=== PATIENT | female | born 1975 | race African-American/Black ===

== ENCOUNTER 2024-04-06 18:22 | Emergency (ER) | payer OTHER, BC, SELFPAY ==
[2024-04-06 18:34] VITALS: BP 114/62; PULSE 78; RESP 20; TEMP 36.6; O2SAT 100
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
[2024-04-06 19:00] VITALS: BP 114/62; PULSE 78; RESP 20; TEMP 36.6; O2SAT 100
== END 2024-04-06 19:05 | disposition short-term general hospital (02) ==
PROVIDERS: Emergency Provider Registered Nurse; PCP Family Medicine
DX: S09.90XA Unspecified injury of head, initial encounter (principal); V47.5XXA Car driver injured in collision with fixed or stationary object in traffic accident, initial encounter; Z79.01 Long term (current) use of anticoagulants; M25.562 Pain in left knee; M54.6 Pain in thoracic spine; I11.0 Hypertensive heart disease with heart failure; I50.9 Heart failure, unspecified; E11.9 Type 2 diabetes mellitus without complications; E78.5 Hyperlipidemia, unspecified; F41.9 Anxiety disorder, unspecified; F32.A Depression, unspecified; Z95.5 Presence of coronary angioplasty implant and graft
CPT/HCPCS: 99202; G0463

== ENCOUNTER 2025-02-18 09:26 | Emergency (ER) | payer BC, SELFPAY ==
--- NOTE | ~2025-02-18 | XR_ITS ---
EXAMINATION: XR finger 1st LT min 2V, 02/18/2025 10:36 CDT HISTORY: crush injury last night COMPARISON: No comparisons available. Findings: There is a nondisplaced fracture distal aspect distal phalanx. No significant degenerative changes. Soft tissues unremarkable. Impression: Fracture detailed above Reviewed, dictated and finalized at location P. Impression: Fracture detailed above
[2025-02-18 09:58] VITALS: BP 116/69; PULSE 77; RESP 20; TEMP 36.5; O2SAT 100
--- OUTSIDE RECORDS SUMMARY | 2025-02-18 10:34 | XMS_ITS | Encounter Summary ---
Author Organization [facility] Address [address] [place] [address] Phone Care Team Providers Care Home Health Care Physician Name Role Phone Ashleigh Rodrigues MD Primary Care Provide r Gilles BUSTAMANTE MD, [facility] [phone] Reason for Referral * Radiology Services (Routine) - Closed Specialty Diagnoses / Procedures Referred By Contac t Referred To Contact Radiology Diagnoses Pre-op testing Urge urinary incontinence Procedures EKG 12 LEAD Randee Campoverde III, MD [address] [place] [address] Phone: tel: fax: Referral ID Status Reason Start Date Expiration Date Visits Re quested Visits Authorized [id number] Closed 11/17/2022 1 1 Encounter Details Date Type Department Care Team (Late st Contact Info) Description 11/17/2022 Transcribe Orders [facility] Preop/Pacu II [address] [place] [id number] Randee Campoverde III, MD [address] [place] [address] Pre-op testing (Primary Dx); Urge urinary incontinence Social History Tobacco Use Types Packs/Day Years Used Date Smoking Tobacco: Former Cigarettes Smokeless Tobacco: Never Alcohol Use Standard Drinks/Week Comments Yes 0 (1 standard drink = 0.6 oz pur e alcohol) Sexually Active Control Partners Comments Not Currently Comments No Sex and Gender Information Value Date Recorded Sex Assigned at Female 05/16/2024 1:11 PM [employer] Legal Sex Female 11:00 AM CDT Gender Identity Female 05/16/2024 1:11 PM [employer] Sexual Orientation Lesbian or [place] 05/16/2024 1: 11 PM [employer] COVID-19 Exposure Response Date Recorded In the last 10 days, have yo u been in contact with someone who was confirmed or suspected to have Coronavirus/COVID-19? No / Unsure 11/14/2022 9:28 AM CDT documented as of this encounter Plan of Treatment Not on file documented as of this encounter Results * (ABNORMAL) BASIC METABOLIC PANEL W/ CALCIUM TOTAL (11/25/2022 9:52 AM CDT) SODIUM 137 136 - 144 mmol/L 11/25/2022 11:31 AM CDT [facility] POTASSIUM 4.1 3.5 - 5.1 mmol/L 11/25/2022 11:31 AM CDT [facility] CHLORIDE 101 100 - 110 mmol/L 11/25/2022 11:31 AM CDT [facility] CO2, VENOUS 23 22 - 32 mmol/L 11/25/2022 11:31 AM CDT [facility] ANION GAP 17.1 8.0 - 20.0 mmol/L 11/25/2022 11:31 AM CDT [facility] GLUCOSE 179(H) 70 - 99 mg/dL 11/25/2022 11:31 AM CDT [facility] BUN 13 6 - 20 mg/dL 11/25/2022 11:31 AM CDT [facility] CREATININE, BLOOD 0.76 0.60 - 1.10 mg/dL 11/25/2022 11:31 AM CDT [facility] BUN/CREATININE RATIO 17 12 - 20 ratio 11/25/2022 11:31 AM CDT [facility] CALCIUM 9.0 8.7 - 10.5 mg/dL 11/25/2022 11:31 AM CDT [facility] IS THE PATIENT REQUIRED TO BE FASTING? No 11/25/2022 11:31 AM CDT [facility] GFR, ESTIMATED >60 >=60 11/25/2022 11:31 AM CDT [facility] Comment: Creatinine Clearance is the preferred criteria for selecting drug dose adjustments in renally impaired patients. The GFR is provided as additional pertinent clinical information. GFR is reported in mL/min/1.73 sq m. Calculation based on the Chronic Kidney Disease Epidemiology Collaboration (CKD- EPI) equation refit without adjustment for race. GFR, EST. >60 >=60 023 11:31 AM CDT [facility] GFR, EST. NONAFRICAN >60 >=60 11/25/2022 11:31 AM CDT [facility] Blood Venipuncture / Unknown 11/25/2022 9:52 AM CDT 11/25/2022 10:52 AM CDT us Randee Campoverde III, MD CHEMISTRY ORDERABLES Fin al Result [facility] [address] [place] [address] * EKG 12 LEAD (11/25/2022 9:42 AM CDT) Ventricular Rate 74 BPM EXTERNAL EKG Atrial Rate 74 BPM EXTERNAL EKG P-R Interval 160 ms EXTERNAL EKG QRS Duration 78 ms EXTERNAL EKG Q-T Duration 396 ms EXTERNAL EKG QTC CALCULATION 439 ms EXTERNAL EKG P [place] 60 degrees EXTERNAL EKG R [place] 40 degrees EXTERNAL EKG T [place] 41 degrees EXTERNAL EKG 11/25/2022 9:42 AM CDT Impressions EXTERNAL EKG - 11/29/2022 12:47 PM CDT Normal sinus rhythm with sinus arrhythmia Normal ECG No previous ECGs available Confirmed by Jeremy Kim ([id number]) on 11/29/2022 12:47:16 PM Narrative Procedure Note Jeremy Barraza MD - 11/29/2022 IMPRESSION: Normal sinus rhythm with sinus arrhythmia Normal ECG No previous ECGs available Confirmed by Jeremy Kim ([id number]) on 11/29/2022 12:47:16 PM Randee Campoverde III, MD IMG ECG ORDERABLES Final Result EXTERNAL EKG documented in this encounter Visit Diagnoses Diagnosis Pre-op testing- Primary Preoperative examination, unspecified Urge urinary incontinence Urge incontinence Pre-op testing Preoperative examination, unspecified Urge urinary incontinence Urge incontinence documented in this encounter Care Teams Home Health Care Physician Relationship Specialty Start Date End Date Ashleigh Rodrigues MD 2 [facility] [address] [address] PCP - General Family Medicine 11/14/22 Randee Campoverde III, MD [address] [place] [address] Consulting Physician Urology 11/14/22 documented as of this encounter
--- OUTSIDE RECORDS SUMMARY | 2025-02-18 10:34 | XMS_ITS | Clinical Summary ---
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 E11.65 300 each 3 02/15/20 23 Active blood-glucose meter kit Use daily as directed for monitoring of blood sugar for diabetes. E11.65 1 kit 1 02/15/20 23 Active lancets 32 gauge misc Use to check blood sugar 3x day. May use another gauge as available. e11.65 300 each 3 02/15/20 23 Active alcohol swabs pads, medicated Apply 1 each topically 3 (three) times a day before meals Prior to checking blood sugar. E11.65 400 each 3 02/15/20 23 Active naloxone (NARCAN) 4 mg/actuation spray,non-aerosol Administer 1 spray into affected nostril(s) as needed for opioid reversal or respiratory depression 12/23/19 23 Active famotidine (PEPCID) 20 mg tablet Take 1 tablet (20 mg total) by mouth 2 (two) times a day 200 tablet 1 05/10/19 24 Active Dexcom G7 Sensor device 1 Device continuously Change every 10 days. E11.65 10 each 3 09/14/19 24 Active Stimulant Laxative Plus 8.6-50 mg Take 1 tablet by mouth 2 (two) times a day as needed 12/12/19 24 Active baclofen (LIORESAL) 20 mg tablet Take 1 tablet (20 mg total) by mouth 3 (three) times a day as needed for muscle spasms 12/12/19 24 Active ergocalciferol (VITAMIN D) 50,000 unit capsule Take 1 capsule (50,000 Units total) by mouth once a week Fridays01/09/20 24 Active calcium carbonate (TUMS) 500 mg (200 mg elemental calcium) chewable tablet Take 3 tablet/chew tab (1,500 mg total) by mouth 3 (three) times a day as needed for indigestion or heartburn Active traMADoL (ULTRAM) 50 mg tablet Take 1 tablet (50 mg total) by mouth every 8 (eight) hours as needed for pain Active TURMERIC ORAL Take 3 capsules by mouth daily Active multivitamin with folic acid 400 mcg tablet Take 1 tablet by mouth nightly Active UNABLE TO FIND Take 2 each by mouth nightly Med Name: multi-mineral tablet. Active omega 7-aqm-kau-fish oil 1,000 (120-180) mg capsule Take 1 capsule (1,000 mg total) by mouth daily Active empagliflozin (JARDIANCE) 25 mg tabletIndications: type 2 diabetes mellitus Take 1 tablet (25 mg total) by mouth daily e11.65 90 tablet 4 02/12/20 24 Active triamcinolone (KENALOG) 0.5 % cream APPLY TO THE AFFECTED AREA THREE TIMES DAILY FOR 7 DAYS 03/01/20 24 Active ondansetron ODT (ZOFRAN-ODT) 4 mg disintegrating tabletIndications: Chronic nausea Take 1 tablet (4 mg total) by mouth every 12 (twelve) hours as needed for nausea or vomiting 30 tablet 03/18/20 24 Active clobetasoL (TEMOVATE) 0.05 % cream 04/17/20 24 Active cyclobenzaprine (FLEXERIL) 10 mg tablet TAKE 1 TABLET BY MOUTH THREE TIMES DAILY FOR UP TO 14 DAYS NEEDED FOR MUSCLE SPASMS 04/06/20 24 Active tacrolimus (PROTOPIC) 0.1 % ointment 04/21/20 24 Active docosahexaenoic acid/epa (FISH OIL ORAL) Take 1,000 mg by mouth Active hydrOXYzine (ATARAX) 25 mg tablet Take by mouth 2 (two) times a day as needed 05/14/[address] (PROTONIX) 40 mg EC tablet Take 1 tablet (40 mg total) by mouth daily 90 tablet 1 05/23/19 25 Active clopidogreL (PLAVIX) 75 mg tablet Take 1 tablet (75 mg total) by mouth daily 90 tablet 3 05/23/19 25 026 Active metoprolol XL (TOPROL-XL) 50 mg extended release tablet Take 1 tablet (50 mg total) by mouth daily 90 tablet 3 05/23/19 25 Active furosemide (LASIX) 20 mg tablet TAKE 1 TABLET(20 MG) BY MOUTH DAILY 100 tablet 1 06/08/19 25 Active sertraline (ZOLOFT) 100 mg tablet TAKE 1 AND 1/2 TABLETS(150 MG) BY MOUTH DAILY 150 tablet 1 06/08/19 25 Active isosorbide mononitrate ER (IMDUR) 30 mg 24 hr tablet TAKE 1 TABLET BY MOUTH EVERY DAY 90 tablet 3 06/12/19 25 Active pen needle, diabetic (BD Yaquelin 2nd Gen Pen Needle) 32 gauge x 5/32 needle Use to inject U500 insulin 2 daily e11.65 200 each 07/03/19 25 Active busPIRone (BUSPAR) 5 mg tabletIndications: Generalized Anxiety Disorder Take 1 tablet (5 mg total) by mouth 3 (three) times a day 90 tablet 2 07/30/19 25 026 Active tirzepatide (MOUNJARO) 10 mg/0.5 mL pen injector injection Inject 0.5 mL (10 mg total) under the skin once a week 2 mL 08/03/19 25 Active armodafiniL (NUVIGIL) 150 mg tablet TAKE 1 TABLET(150 MG) BY MOUTH DAILY 30 tablet 5 09/05/19 25 Active spironolactone (ALDACTONE) 25 mg tablet TAKE 2 TABLETS(50 MG) BY MOUTH DAILY 180 tablet 3 10/02/19 25 Active benzonatate (TESSALON) 100 mg capsuleIndications :Cough Take 1 capsule (100 mg total) by mouth 3 (three) times a day as needed for cough 42 capsule 10/02/19 25 Active nystatin cream APPLY TOPICALLY TO FEET TWICE DAILY 10/08/19 25 Active aspirin 81 mg enteric coated tablet TAKE 1 TABLET BY MOUTH EVERY DAY 100 tablet 11/02/19 25 Active gabapentin (NEURONTIN) 800 mg tabletIndications: Malignant neoplasm of right ovary Take 1 tablet (800 mg total) by mouth 3 (three) times a day 90 tablet 1 12/21/19 25 Active tiZANidine (ZANAFLEX) 2 mg tablet Take 1 tablet (2 mg total) by mouth 3 (three) times a day 12/21/19 25 Active atorvastatin (LIPITOR) 80 mg tablet Take 1 tablet (80 mg total) by mouth daily 90 tablet 4 01/02/20 25 Active ezetimibe (ZETIA) 10 mg tablet Take 1 tablet (10 mg total) by mouth daily 90 tablet 3 01/04/20 25 026 Active Active Problems Patient Care Coordination No te Formatting of this note is d ifferent from the original. 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 - 08/07/2023: CA125 13, CT 08/08/23: OLU Plan 8.6.25: -q3 month surveillance -CA125 Problem Noted Date Diagnosed Date COVID-19 10/01/2024 Assessment & Plan (10/01/2024 11:52 AM CDT): Nasal congestion 10/01/2024 Assessment & Plan (10/01/2024 11:52 AM CDT): Orders: POC Influenza A/B, COVID-19 antigen POCT respiratory syncytial virus Dizziness 06/18/2024 Assessment & Plan (08/22/2024 9:44 AM CDT): chronic Recent echo in jan was unremarkable EKG was unchanged in b Declines meclizine Most likely orthostatics given her bp in office today is borderline although orthostatics at previous office visits were negative Recommend reaching out to her financial accountant to lower one of her bp medications Get up slow, stay hydrated Will also refer to neurology just to be sure nothing neurological is occurring but ct scan in jun was reassuring Assessment & Plan (06/18/2024 12:50 PM GEOTECHNICAL LABORATORY TECHNICIAN): New concern Not at goal Orthostatics in office negative, see above Cmp already pending, will add tsh and cbc Recent echo in jan was unremarkable Will get EKG and ct of the head stat and hold Declines meclizine She has an appt with neuro on 07/01 which I recommended she also discuss with them F/u in 2 months Fatigue 06/18/2024 Assessment & Plan (06/18/2024 12:49 PM GEOTECHNICAL LABORATORY TECHNICIAN): Chronic Initially improved and now symptoms are back We will order CBC B12 TSH iron panel Follow-up pending above results Pain of finger of left hand 06/18/2024 Assessment & Plan (06/18/2024 12:51 PM GEOTECHNICAL LABORATORY TECHNICIAN): New concern 2/2 fracture Continue splint and tylenol for pain Referral to ortho for further evaluation and recommendation Rash 05/23/2024 Assessment & Plan (05/23/2024 11:15 AM GEOTECHNICAL LABORATORY TECHNICIAN): New concern Derm saw granuloma but they also mentioned concern for sarcoidosis Will refer to rheumatology for further evaluation History of vitamin D deficiency 05/23/2024 Assessment & Plan (05/23/2024 11:16 AM GEOTECHNICAL LABORATORY TECHNICIAN): Vit d levels ordered Pending results will determine dose of vit d supplements Family history of colon cancer 05/23/2024 Encounter for screening colonoscopy 05/23/2024 Chest pain, unspecified type 01/25/2024 Assessment & Plan (02/08/2024 8:46 AM CDT): Stable Cardiac etiology ruled out during hospitalization Will do a trial of ppi for 90 days to see if there is any improvement Will also refer to psychiatry upon request of patient for anxiety F/u in 3 months at annual Zyncdcom continuous glucose monitoring device 12/07 Assessment & Plan (10/28/2024 8:52 AM CDT): Continuous glucose monitor (cgm) applied from 10/15/2024 to 10/28/2024 This device was placed for monitor and treatment of blood sugar. Interpretation of data- 98% time in range. Average blood sugar- 118, 2% hyperglycemia. 0% hyperglycemia. Assessment & Plan (06/28/2024 8:44 AM GEOTECHNICAL LABORATORY TECHNICIAN): Continuous glucose monitor (cgm) applied from 06/15/2024 to 06/28/2024 This device was placed for monitor and treatment of blood sugar. Interpretation of data- 75% time in range. Average blood sugar- 143, 2% % hypoglycemia. 23% hyperglycemia. Assessment & Plan (12/26/2023 8:30 AM CDT): Continuous glucose monitor (cgm) applied from 12/13/2023 to 12/26/2023 This device was placed for monitor and treatment of blood sugar. Interpretation of data- 66% time in range. Average blood sugar- 167, 3 % hypoglycemia. 31 % hyperglycemia. Impacted cerumen of left ear 10/25/2023 Assessment & Plan (10/25/2023 11:08 AM CDT): New concern Cerumen removed with lighted curette of the left ear Avoid q tips F/u prn Neuropathy due to drug 10/25/2023 Syncope, tussive 10/25/2023 Assessment & Plan (10/25/2023 11:05 AM CDT): 2/2 coughing Resolved Unlikely cardiac related given hx F/u prn Stool fat increased 10/25/2023 Assessment & Plan (10/25/2023 11:07 AM CDT): New concern Not at goal Will get stool cx but low suspicion of infection Likely gallbladder related Will refer to GI for further evaluation and recommendation Chemotherapy-induced neuropathy 08/09/2023 Overview (11/08/2023): Pt reporting persistent bilateral upper and lower extremity neuropathy with associated painful tingling on max dose gabapentin 800mg TID. Plan: - Transition from gabapentin to Lyrica (when starting Lyrica decrease gabapentin to 400mg TID, Lyrica induction with 75mg daily x7 days then 75mg BID) - medications resent to patient's pharmacy Assessment & Plan (05/22/2024 12:32 PM GEOTECHNICAL LABORATORY TECHNICIAN): Chronic stable Cont gabapentin as per Oncology Assessment & Plan (10/25/2023 11:06 AM CDT): Chronic stable Will do a one time 30 day refill of the gabapentin but she will need to follow back up with the oncologist in November for future refills BRIP1 gene mutation positive 08/09/2023 Overview (11/08/2023): S/p counseling. Recommended for referral to genetic counselor, pt declines. 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 Discussed risk of breast/ovary/colon cancer due to autosomal dominant mutation. Patient referred to genetic counselor 07/19/23: has not yet seen genetic counselor. Discussed again, patient declines. Discussed compliance with cancer screenings, including next mammogram due 09/2023. Cancer of fallopian tube 03/16/2023 Chest pain 02/06/2023 Hypertension associated with diabetes 01/31/2023 Assessment & Plan (05/22/2024 12:28 PM GEOTECHNICAL LABORATORY TECHNICIAN): Bp in the office today BP Readings from Last 1 Encounters: 05/17/24 126/63 Continue current regimen of amlodipine 5mg daily metoprolol 50 mg daily spironolactone 25 mg daily Recommend DASH diet, heart-healthy lifestyle, exercise. Discussed the risks of hypertension. F/u in 6 months Assessment & Plan (12/26/2023 9:17 AM CDT): This is a chronic condition which is at goal. Goal is less than 140/90. Blood pressure 90s over 40s, 90s over 50s. Reports at home blood pressures are running 120s over 80. Messaged Dr. Antonio Alvarez regarding blood pressure. She agreed to test at home and let us know how her blood pressure is looking. She has upcoming appointments both with cardiology and Dr. Butts Continue amlodipine, Lasix, metoprolol, spironolactone Encouraged to monitor weight and B/P at home. Explained correct way to take blood pressure. - After 5 minutes of sitting calmly with arm supported. Encouraged to void caffeine and excessive alcohol consumption as this will elevate B/P Assessment & Plan (10/25/2023 11:07 AM CDT): Bp in the office today BP Readings from Last 1 Encounters: 10/25/23 132/70 Continue current regimen of amlodipine 5mg daily Recommend DASH diet, heart-healthy lifestyle, exercise. Discussed the risks of hypertension. F/u in 6 months Assessment & Plan (09/08/2023 9:15 AM CDT): This is a chronic condition which is at goal. Goal is less than 140/90 Personally reviewed labs. Continue spironolactone, sacubitril/valsartan, amlodipine Encouraged to monitor weight and B/P at home Encouraged to take medications as prescribed. Assessment & Plan (06/07/2023 8:36 AM GEOTECHNICAL LABORATORY TECHNICIAN): This is a chronic condition which is at goal of less than 140/90 Personally reviewed labs. Continue spironolactone, amlodipine, Lasix, metoprolol Encouraged to monitor weight and B/P at home Encouraged to take medications as prescribed. Assessment & Plan (05/10/2023 3:04 PM GEOTECHNICAL LABORATORY TECHNICIAN): Bp in the office today BP Readings from Last 1 Encounters: 05/10/23 122/80 Continue current regimen of amlodipine 5mg daily Recommend DASH diet, heart-healthy lifestyle, exercise. Discussed the risks of hypertension. F/u in 6 months Assessment & Plan (03/06/2023 12:43 PM CDT): This is a chronic condition which is at goal of less than 140/90 Personally reviewed labs. Continue amlodipine, furosemide, spironolactone Encouraged to monitor weight and B/P at home Encouraged to take medications as prescribed. Assessment & Plan (01/31/2023 10:52 AM CDT): Bp in the office today BP Readings from Last 1 Encounters: 01/31/23 114/80 Continue current regimen of amlodipine 5mg daily Recommend DASH diet, heart-healthy lifestyle, exercise. Discussed the risks of hypertension. F/u in 6 months Malignant neoplasm of fallopian tube 01/31/2023 Overview (12/11/2024): - TLH/BSO on 12/21/22 for heavy menstrual bleeding. Pathology notable for at least Stage IIA, grade 3 serous fallopian tube cancer, p53 mut. - 02/22/23: Initial visit, exam wnl. - 03/15/23: CT A/P w/ no evidence of metastatic disease. Discussed limitations with not having full staging; will plan to discuss case at tumor board to discuss whether to pursue full staging or not (if higher stage, may be candidate for parp inhibitor). Discussed in meantime, will arrange for port and pre-auth for carboplatin/docetaxol. Will undergo chemo teaching today. -04/19/23: Presents for pre-chemo visit prior to Cycle 2 of Carbo/Taxotere -05/10/23: Presents for pre-chemo visit prior to Cycle 3 of Carbo/Taxotere -06/07/23: Presents for pre-chemo visit prior to Cycle 4 of Carbo/Taxotere. Encouraged scheduled antiemetics and fiber for stool bulking. - 07/19/23: C6 prechemo visit. Neuropathy worsening but otherwise feeling at baseline. Taking 600 mg TID gabapentin. - 08/09/23: s/p C6 carbo/taxotere. CT no e/o metastatic disease. Neuropathy stable but bothersome, frequent tripping, otherwise symptomatically improved. Taking wendi 800mg TID, unsure if helpful. Declines genetic counselor s/p counseling. Due for mammogram, ordered. - 11/08/23: OLU on exam. CA-125 9. - 03/06/24: OLU. CA-125 9.9. - 06/05/24: OLU. CA125 7.0 - 09/11/24: OLU. CA125 6.0. - 12/11/24: OLU. CA 125 7.0. 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 Continue following with specialist Severe episode of recurrent major depressive disorder, without psychotic features 09/21/2022 Assessment & Plan (05/22/2024 12:31 PM GEOTECHNICAL LABORATORY TECHNICIAN): Continue sertraline 150mg daily -SI/-HI Reminded her to report to the ED or call EMS should SI/HI develop Continue with therapy F/u in 6 months Assessment & Plan (05/09/2023 11:02 PM GEOTECHNICAL LABORATORY TECHNICIAN): Continue sertraline 100mg daily -SI/-HI Reminded her to report to the ED or call EMS should SI/HI develop Continue with therapy F/u in 3 months Assessment & Plan (01/31/2023 11:51 AM CDT): Continue sertraline 100mg daily -SI/-HI Reminded her to report to the ED or call EMS should SI/HI develop Does not want to increase the dose at this time but will do a closer follow up given everything that is going (mother passing, recent ovarian cancer, father with liver cancer) Continue with therapy F/u in 3 months Assessment & Plan (10/05/2022 10:05 AM CDT): improved Continue sertraline 100mg daily Referral to therapy given -SI/-HI Reminded her to report to the ED or call EMS should SI/HI develop F/u in 3 months MAGDIEL (obstructive sleep apnea) 06/23/2022 Assessment & Plan (05/22/2024 12:32 PM GEOTECHNICAL LABORATORY TECHNICIAN): Stable / clinically quiescent. Will continue to monitor. Assessment & Plan (01/30/2023 6:58 AM CDT): Stable / clinically quiescent. Will continue to monitor. Hyperlipidemia associated with type 2 diabetes tricia alicea 06/23/2022 Assessment & Plan (05/22/2024 12:27 PM GEOTECHNICAL LABORATORY TECHNICIAN): Stable Continue atorvastatin 80mg daily Assessment & Plan (12/26/2023 9:17 AM CDT): This is a chronic condition which is not at goal . Goal is LDL less than 70 Continue atorvastatin Encouraged to eat healthy, include fresh fruits and vegetables daily and avoid eating fried foods more than once per week. Assessment & Plan (09/08/2023 9:16 AM CDT): This is a chronic condition which is not at goal . Goal is LDL less than 70 Continue atorvastatin Encouraged to eat healthy, include fresh fruits and vegetables daily and avoid eating fried foods more than once per week. Encouraged to take medications as prescribed. Assessment & Plan (06/07/2023 8:35 AM GEOTECHNICAL LABORATORY TECHNICIAN): This is a chronic condition which is at goal of LDL less than 70 Continue atorvastatin Encouraged to eat healthy, include fresh fruits and vegetables daily and avoid eating fried foods more than once per week. Encouraged to take medications as prescribed. Assessment & Plan (03/06/2023 12:44 PM CDT): This is a chronic condition which is at goal of LDL less than 70 Continue atorvastatin Encouraged to eat healthy, include fresh fruits and vegetables daily and avoid eating fried foods more than once per week. Encouraged to take medications as prescribed. Assessment & Plan (01/30/2023 6:56 AM CDT): Stable Continue atorvastatin 80mg daily Menometrorrhagia 01/05/2022 Overview (01/05/2022): Added automatically from request for surgery [id number] Chronic nausea 12/10/2021 Assessment & Plan (03/18/2024 1:05 PM GEOTECHNICAL LABORATORY TECHNICIAN): Refilled Zofran as courtesy for patient today Assessment & Plan (12/10/2021 10:39 AM CDT): Unknown etiology Will continue with compazine for now Will eventually send to GI for further evaluation History of uterine fibroid 11/16/2021 History of abnormal cervical Pap smear Assessment & Plan (11/16/2021 6:54 PM CDT): Obtain pap/glue jointer operator history from [facility]. STEVEN signed. Class 2 severe obesity due t o excess calories with serious comorbidity and body mass index (BMI) of 37.0 to 37.9 in adult 11/16/2021 Assessment & Plan (05/23/2024 11:17 AM GEOTECHNICAL LABORATORY TECHNICIAN): She was counseled on the importance of maintaining a healthy weight and the risks of obesity. Weight loss recommended. Encourage 150min/ week of exercise Encourage 1500 calories in a day for weight loss On ozempic to help with weight loss She is down 20lbs since oct Assessment & Plan (03/18/2024 1:05 PM GEOTECHNICAL LABORATORY TECHNICIAN): Chronic, improving but not at goal BMI less than 30 Continue nutrition and exercise changes Assessment & Plan (12/26/2023 9:18 AM CDT): This is a chronic condition which continues Sixteen lbs. Weight loss since last office visit Continue Ozempic 1 mg weekly Encouraged healthy eating which includes a low carb diet. Avoiding processed foods, sweets and fried foods. Encouraged 30 minutes of walking at least 5 days per week Discussed that exercise can be broken down into small sessions- for example 2- 15 minutes sessions or 3- 10 minutes sessions. Assessment & Plan (12/11/2023 12:51 PM CDT): She has been trying to exercise more Assessment & Plan (09/08/2023 9:17 AM CDT): This is a chronic condition which continues 11 lbs. Weight gain since last office visit Encouraged healthy eating which includes a low carb diet. Avoiding processed foods, sweets and fried foods. Encouraged 30 minutes of walking at least 5 days per week Discussed that exercise can be broken down into small sessions- for example 2- 15 minutes sessions or 3- 10 minutes sessions. She has lower leg edema from a side effect related to her radiation. This may be part of the reason she has an increase in weight. She is being treated with diuretics for this condition Assessment & Plan (06/07/2023 8:34 AM GEOTECHNICAL LABORATORY TECHNICIAN): This is a chronic condition which is improving 17 lb weight loss since last office visit She has been sick, and is on chemo Encouraged healthy eating and minimal exercise as she can tolerate Assessment & Plan (03/06/2023 12:44 PM CDT): This is a chronic condition which continues. Weight is stable, will be undergoing chemotherapy Tolerating Trulicity 4.5 mg weekly Encouraged healthy eating and weight loss Assessment & Plan (11/16/2021 6:49 PM CDT): Encourage a weight loss program such as Weight Watchers incorporating dietary changes and aerobic / weight-bearing exercise at least 4-5 times per week, for at least 30-45 minute sessions. Abnormal uterine bleeding 11/09/2021 Assessment & Plan (12/07/2022 8:46 AM CDT): Going for laparoscopic hysterectomy Assessment & Plan (11/16/2021 7:17 PM CDT): Will continue norethindrone 5 mg daily for now. Await pelvic sono results - will schedule to be done here in office next week. May need to consider EMB. Plan to schedule consult with Dr. Martinez to discuss surgical intervention. Patient no longer desires fertility and the bleeding is affecting her daily activities and quality of life. Assessment & Plan (11/09/2021 10:30 AM CDT): worsening Continue norethindrone TVUS and pelvic US to evaluate for mass and endometrial lining TSH, PRL, LH FSH E2 (evaluate for perimenopause) CBC to evaluate anemia Referral to ob for further recommendation Coronary artery disease 09/28/2021 Assessment & Plan (05/22/2024 12:26 PM GEOTECHNICAL LABORATORY TECHNICIAN): stable Continue following with cardiology Continue with aspirin and statin and blood pressure control Assessment & Plan (01/30/2023 6:56 AM CDT): Found on cardiac cath One stent placed Continue following with cardiology Continue with aspirin and statin and blood pressure control Assessment & Plan (05/31/2022 1:50 PM GEOTECHNICAL LABORATORY TECHNICIAN): Found on cardiac cath One stent placed Recent financial accountant left the practice and in need of a new financial accountant Referral placed Continue with aspirin and statin and blood pressure control Assessment & Plan (12/10/2021 10:37 AM CDT): S/p pci with 1 stent placed Continue with aspirin and plavix and statin Instructed not to take NSAIDS given the gi toxicity Recommend continue following with cardiology F/u in 3 months Assessment & Plan (09/28/2021 1:24 PM CDT): Found on cardiac cath No stents were placed Has follow up with cardiology on 10/05 who will start her on medical management Continue with aspirin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 [place] [address] Ashleigh Tidwell MD Medical Question/Miscellan eous 01/14/2025 Telephone [facility] [address] [place] [address] [address] [place] [address] Rai Reid NP 01/09/2025 Telephone [facility] Gastroenterology at [address] [place] [address] Yu Verdugo Colonoscopy Reschedule 01/03/2025 Orders Only [employer] at [address] [place] [address] Baljeet Acuña NP 01/02/2025 Telephone [employer] [facility] at [address] [place] [address] Baljeet Acuña NP 01/01/[address] [address] Anastasiya Carey 12/27/2024 Telephone [facility] Primary Care at [address] [place] [address] Ashleigh Tidwell MD Medical Question/Miscellan eous 12/25/2024 Telephone [facility] - [facility] [address] [place] [phone] Astrid Beck Au.D. 12/20/2024 Telephone [facility] [address] [facility] 13th [place] [address] Luiza Comer, RN 12/20/2024 Orders Only [facility] [address] [facility] 13th [place] [address] [place] [address] Luiza Comer, RN Malignant neoplasm of right ovary 12/13/2024 Telephone [facility] Gynecology Clinic [address] [facility] 3rd [address] [place] [address] Naila Cornejo RN 12/11/2024 3:15 PM CDT Office Visit [facility] [address] [place] [address] Malignant neoplasm of right ovary (Primary Dx) 12/10/2024 Orders Only [facility] [address] [facility] 13th [place] [address] Luiza Comer, RN 12/10/2024 Orders Only [facility] [address] [facility] 13th [place] [address] Luiza Comer RN 12/10/2024 Orders Only [facility] [address] [facility] 13th [place] [address] [place] [address] Luiza Comer, RN Malignant neoplasm of right ovary (HCC) (Primary Dx) 12/09/2024 Orders Only [facility] Primary Care at [address] [place] [address] Ashleigh Tidwell MD Screening mammogram for breast cancer (Primary Dx) 12/09/2024 Telephone [facility] [address] [facility] [address] [place] [address] Jil Jimenez MA 12/09/2024 Results Follow-Up [facility] Primary Care at [place] [address] [facility] [address] [place] [phone] Ashleigh Tidwell MD Screening Mammogram Bilateral W Jaquan 12/07/2024 9:00 AM CDT Lab [facility] [address] [place] [address] Malignant neoplasm of right ovary (HCC) 12/07/2024 8:30 AM CDT - 12/07/2024 11:59 PM CDT Hospital Encounter [facility] [address] [place] [address] Screening mammogram, encounter for Discharge Disposition: Discharge to home or self care from Last 3 Months Immunizations Immunization Administration Dates Next Due Influenza, Quadrivalent, Spl it, Preservative Free, Intramuscular 04/19/2022 Influenza, Unspecified 01/05/2024,2022,04/07/2022,09/28(Deferred: Patient Refused),08/27/2021(Deferred: Patient Refused),05/08/2021(Deferred: Patient Refused),02/05/2021(Deferred: Patient Refused),12/06/2020(Deferred: Patient Refused),12/06/2020(Deferred: Patient Refused),12/06/2020(Deferred: Patient Refused),12/06/2020(Deferred: Patient Refused) Pneumococcal Conjugate Pcv20 12/11/2023 Tdap 10/10/2020 Surgical History Surgery Date Site/Laterality Comments REDUCTION MAMMAPLASTY 05/08/2008 - 05/07/2009 Bilateral CARPAL TUNNEL RELEASE Right DILATION AND CURETTAGE OF UTERUS CARDIAC STENT PLACEMENT 1 stent FOOT SURGERY Left mass removed from left foot HYSTERECTOMY PORT PLACEMENT CHEST >5 YEARS 03/23/2023 N/A PORT REMOVAL 12/21/2023 N/A COLONOSCOPY 01/22/2025 first Medical History Medical History Date Comments Motion sickness Asthma GERD (gastroesophageal reflux disease) Cancer (HCC) Kidney stone CAD (coronary artery disease) St ent TIANA (generalized anxiety disorder) DJD (degenerative joint disease) (HFpEF) heart failure with preserved ejection fr action MDD (major depressive disorder) DM2 (diabetes mellitus, type 2) HTN (hypertension) MAGDIEL (obstructive sleep apnea) HLD (hyperlipidemia) Vitamin D deficiency Diabetic retinopathy (HCC) ETOH abuse COPD (chronic obstructive pulmonary disease) Obesity Covid-19 Fallopian tube cancer, carcinoma Neuropathy HPV (human papilloma virus) infection Cervix Family History Medical History Relation Name Comments Liver cancer Father Breast cancer Maternal cousin COPD Mother Lilia Damon Cancer Mother Lilia Damon lung Drug abuse Mother Lilia Damon Hypertension Mother Lilia Damon Multiple sclerosis Mother Lilia Damon Ovarian cancer Mother's Sister 1 great aunt Colon cancer Mother's Sister 2 Thyroid cancer Neg Hx Relation Name Status Comments Father Alive Maternal cousin Mother Lilia Damon Mother's Sister 1 great aunt Mother's Sister 2 Social History Tobacco Use Types Packs/Day Years Used Date Smoking Tobacco: Former Cigarettes 2 16 Q uit: 06/2022 Smokeless Tobacco: Former Tobacco Cessation:Counseling Given: Not Answered Alcohol Use Standard Drinks/Week Comments Yes 0 (1 standard drink = 0.6 oz pur e alcohol) [facility] Utilities Answer Date Recorded In the past 12 months has Rewardable, gas, oil, or water [employer] threatened to shut off services in your home? No 05/30/2023 Social Connection and Isolation Panel Answer Date Recorded In a typical week, how many times do you talk on the phone with family, friends, or neighbors? More than three times a week 05/30/2023 How often do you get togethe r with friends or relatives? Twice a week 05/30/2023 How often do you attend chur ch or jewish services? Never 05/30/2023 Do you belong to any clubs o r organizations such as sikh groups, unions, fraternal or athletic groups, or school groups? No 05/30/2023 How often do you attend meet ings of the clubs or organizations you belong to? Never 05/30/2023 Marital Status Not on file 05/30/2023 Overall Financial Resource Strain (CARDIA) Answe r Date Recorded How hard is it for you to pa y for the very basics like food, housing, medical care, and heating? Not very hard 05/30/2023 PHQ-2 Answer Date Recorded PHQ-2 Total Score (If total score is 3 or more points, staff should administer the PHQ-9) 0 10/01/2024 Hunger Vital Sign Answer Date Recorded Within the past 12 months, y ou worried that your food would run out before you got the money to buy more. Patient declined Within the past 12 months, t he food you bought just didn't last and you didn't have money to get more. Patient declined PRAPARE - Transportation Answer Date Re corded In the past 12 months, has l ack of transportation kept you from medical appointments or from getting medications? No 05/09 In the past 12 months, has l ack of transportation kept you from meetings, work, or from getting things needed for daily living? No 05/30/2023 Housing Stability Vital Sign Answer Jimmy e Recorded In the last 12 months, was t here a time when you were not able to pay the mortgage or rent on time? No 05/30/2023 In the last 12 months, how many places have you lived? 1 05/30/2023 In the last 12 months, was t here a time when you did not have a steady place to sleep or slept in a long-term (including now)? No 05/30/2023 AUDIT-C Answer Date Recorded Q1: How often do you have a drink containing alc ohol? Monthly or less 01/21/2025 Q2: How many drinks containi ng alcohol do you have on a typical day when you are drinking? 1 or 2 01/21/2025 Q3: How often do you have si x or more drinks on one occasion? Never 01/21/2025 Personal Safety Answer Date Recorded Have you ever been in or are you currently in a harmful physical or emotional relationship or is someone making you feel afraid or unsafe? Denies 01/22/2025 Comments No Sex and Gender Information Value Date Recorded Sex Assigned at Not on file Legal Sex Female 11:22 PM CDT Gender Identity Not on file Sexual Orientation Not on file Obstetrics History Para Term AB IAB SAB Ectopic Multiple Livin g Live Births 0 0 0 0 0 0 0 0 0 0 0 Last Filed Vital Signs Vital Sign Reading Time Taken Comments Blood Pressure 106/72 02/12/2025 3:19 PM CDT Pulse 87 02/12/2025 3:19 PM CDT Temperature 36.6 C (97.9 F) 01/22/2025 1:08 PM CDT Respiratory Rate 18 01/22/2025 1:08 PM CDT Oxygen Saturation 97% 02/12/2025 3:19 PM CDT Inhaled Oxygen Concentration - - Weight 87.7 kg (193 lb 6.4 oz) 02/12/2025 3:19 P M CDT Height 162.6 cm (5' 4.02) 02/12/2025 3:19 PM CD T Body Mass Index 33.18 02/12/2025 3:19 PM CDT Plan of Treatment Health Maintenance Due Date Last Done Comments Influenza Vaccine (#1) 2025 , 03/21/2023, 04/19/2022, Additional history exists Regular Well Visit/Exam 18-64 05/23/2025 05/23/2024, 01/31/2023, 08/27/2021 Covid-19 Vaccine (3 - Pfizer risk series) 06/18/2025 09/06/2020, 08/18/2020 Postponed from 10/04/2020 (Patient declined, but will receive in the future) Hemoglobin A1C 06/25/2025 12/23/2024, 09/05, 06/28/2024, Additional history exists Albumin Creatinine Ratio, Urine 07/05/2025 07/05/2024, 09/08/2023, 08/31/2022, Additional history exists Dilated Eye Exam 09/27/2025 09/27/2024, , 07/05/2024, Additional history exists Depression Screening 10/01/2025 10/01/2024, 08/21/2024, 06/18/2024, Additional history exists Foot Exam 10/28/2025 10/28/2024, 05/08, 03/06/2023, Additional history exists Breast Cancer Screening-Mammogram 12/07/2025 12/07/2024, 09/29/2023, 09/20/2022 Lipid Panel 12/23/2025 12/23/2024, 06/08, 05/23/2024, Additional history exists eGFR 12/23/2025 12/23/2024, 12/06, 11/04/2024, Additional history exists DTaP/Tdap/Td Vaccine (2 - Td or Tdap) 10/10/2030 10/10/2020 Colon Cancer Screening-Colonoscopy 01/22/2035 01/22/2025 Cervical Cancer Screening Discontinued 11/23/2020 Pneumococcal vaccine <65 Completed 12/11/2023 Hepatitis B Screening Completed 07/11/2024 Hepatitis C Screening Completed 07/11/2024 , 10/25/2023, 08/28/2021 Medical Devices Implanted Type Area Health Education Aide Device Identifier Shelf Expiration Date Model / Serial / Lot [employer] Xcela Power Port 8fr [id number] - [id number] Implanted:Qty: 1 on 03/23/2023 by rGegg Lutz MD at [facility] [employer] 07/11/2027 [id number] / / [id number] Procedures Procedure Name Priority Date/Time Associated Diagnosis Comments HEARING AID FIT Routine 01/30/2025 8:00 AM CDT Sensorineural hearing loss (SNHL) of right ear with unrestricted hearing of left ear COLON BIOPSY 01/22/2025 12:15 PM CDT Family history of colon cancer Encounter for screening colonoscopy POCT GLUCOSE DEVICE Routine 01/22/2025 11:25 AM CDT SURGICAL PATHOLOGY STAT 01/22/2025 10:27 AM CDT Family history of colon cancer Encounter for screening colonoscopy COLONOSCOPY 01/22/2025 10:03 AM CDT EGFR Routine 12/23/2024 LIPID PANEL Routine 12/23/2024 COMPREHENSIVE METABOLIC PANEL Routine 12/23/2024 TSH Routine 12/23/2024 HEMOGLOBIN A1C Routine 12/23/2024 CA 125 Routine 12/07/2024 9:02 AM CDT Malignant neoplasm of right ovary (HCC) SCREENING MAMMOGRAM BILATERAL W JAQUAN Schedule Routine, Read Routine (OP Routine) 12/07/2024 8:55 AM CDT Screening mammogram, encounter for DIABETIC EYE EXAM Routine 09/27/2024 HEPATITIS PANEL, ACUTE Routine 07/11/2024 11:56 AM GEOTECHNICAL LABORATORY TECHNICIAN ALBUMIN CREATININE RATIO, URINE Routine 07/05/2024 9:07 AM GEOTECHNICAL LABORATORY TECHNICIAN 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 - 01/30/2025 8:00 AM CDT Astrid Beck Au.D. 01/30/2025 9:14 AM Hearing Aid Fit Performed by: Astrid Beck Au.D. Authorized by: Astrid Beck Au.D. us Astrid Land [employer] O RDERABLES Final Result * POCT glucose (01/22/2025 11:25 AM CDT) Glucose, POC 89 70 - 199 mg/dL Blood 01/22/2025 11:2 5 AM CDT 01/22/2025 11:25 AM CDT us Fly Cast DO LAB POCT ORDERABLES - DEVICE F inal Result [facility] [address] [facility] Department of Laboratories [place], [place] [id number] * Surgical pathology (01/22/2025 10:27 AM CDT) Tissue (Polyp(s), colon/colorectal, esophageal, gastric) 01/22/2025 12:39 PM CDT Narrative PATHOLOGY [facility] ([facility] - 01/24/2025 3:40 PM CDT EPIC results best viewed via link to PDF [facility] Department of Pathology [address] [place] [address] Note to Patients: This report may contain a detailed description of human tissue sent by a health care provider to the laboratory for pathologic evaluation. The content of this report is essential for diagnosis and may provide important critical findings. This information may be unfamiliar to patients to review without a medical professional present. It is advised that the patient review this report in the presence of a health care provider who can answer questions and explain the details. Final Report Patient Name: HEIDY HESTER Address: [address] [place], [place] [address] Gender: F : 1975 (Age: 49) Service: Gastro Location: [facility] Hospital #: [id number] Patient Type: [facility] Taken: 01/22/2025 Received: 01/23/2025 Accessioned: 01/23/2025 Reported: 01/24/2025 Physician(s):Dr. Fly Cast D.O. Diagnosis: Colon, splenic flexure, biopsy: - Early/evolving hyperplastic polyp. - No evidence of dysplasia or malignancy. Sean Bay MD Report Electronically Reviewed and Signed Out By Sean Bay MD 01/24/2025 15:40:11 Specimen(s) Received: A: Splenic flexure polyp x 1 Microscopic Description: Microscopic examination of routine and numerous deeper levels shows two polypoid fragments of colonic mucosa with subtle hyperplastic glandular changes without evidence of marked crypt dilation, lateral branching, or flattening of the crypt bases. The aforementioned findings are quite subtle, and, alone, are not entirely specific. However, in concert with the endoscopic impression of a polyp, they are compatible with an early/evolving hyperplastic polyp. There is no evidence of dysplasia or malignancy. Clinical History: Family history of colon cancer. Screening colonoscopy. Gross Description: The specimen is submitted in a single formalin filled container labeled HEIDY HESTER and splenic flexure polyp x1. It is 2 fragments of solorio mucosa, 1 and 2 mm. All in one cassette. Vivien Cortes/Smita Rudolph M.D. REPORT IMAGES AND SCANNED DOCUMENTS, IF INCLUDED, ONLY VIEWABLE IN PDF VERSION OF REPORT The performance characteristics of some immunohistochemical stains, fluorescence in-situ hybridization tests and immunophenotyping by flow cytometry cited in this report (if any) were determined by the Surgical Pathology Department at [facility] as part of an ongoing quality director program and in compliance with federally mandated regulations drawn from the Clinical Laboratory Improvement Act of 1988 (CLIA '88). Some of these tests rely on the use of analyte specific reagents and are subject to specific labeling requirements by the US Food and Drug Administration. Such diagnostic tests may only be performed in a facility that is certified by the Department of Health and Human Services as a high complexity laboratory under CLIA '88. The FDA has determined that such clearance or approval is not necessary. This test is used for clinical purposes. It should not be regarded as investigational or for research. Nevertheless, federal rules concerning the medical use of analyte specific reagents require that the following disclaimer be attached to the report: This test was developed and its performance characteristics determined by the Surgical Pathology Department [facility]. It has not been cleared or approved by the U. S. Food and Drug Administration. Note for decalcified specimens: This assay has not been validated on decalcified tissues. Results should be interpreted with caution given the possibility of false negativity on decalcified specimens Fly Cast DO LAB PATHOLOGY ORDERABLES Final Result PATHOLOGY [facility] ([facility] [place] [address] * Colonoscopy (01/22/2025 10:03 AM CDT) Anatomical Region Laterality Modality Other Narrative Procedure Note Fly Cast DO - 01/22/2025 10:03 AM CDT [facility] Patient Name: Heidy Hester Procedure Date: 01/22/2025 10:03 AM Date of : 1975 Admit Type: Outpatient Age: 49 Gender: Female Attending MD: Fly Cast D.O., Room: [facility] ENDOSCOPY ROOM 3 Note Status: Finalized Patient Profile: Refer to note in patient chart for documentation of history and physical. Procedure: Colonoscopy Indications: Screening for colorectal malignant neoplasm, Thisis the patient's first colonoscopy Referring MD: Ashleigh Tidwell M.D. Providers: Fly Cast D.O. Impression: - One 3 mm polyp at the splenic flexure, removedwith a jumbo cold forceps. Resected and retrieved. Recommendation: - Discharge patient to home. - Resume previous diet. - Continue present medications. - Await pathology results. - Repeat colonoscopy (date not yet determined) for surveillance based on pathology results. - Return to primary care physician PRN. Medicines: Monitored Anesthesia Care Complications: No immediate complications. Estimated Blood Loss: Estimated blood loss was minimal. Procedure: Pre-Anesthesia Assessment: - As per anesthesia. The benefits, risks and alternatives of theprocedure and sedation were discussed and informed consentwas obtained. All questions were answered. Please referto the signed informed consent document in the medical record. The bowel preparation used was Miralax via split dose instruction. The bowel preparation usedwas bisacodyl tablets via split dose instruction. The scope was passed under direct vision. TheColonoscope [id number] was introduced through the anus and advanced to the the cecum, identified by appendiceal orifice and ileocecal valve. The colonoscopy was performed without difficulty. The patient tolerated the procedure well. The qualityof the bowel preparation was adequate. Anatomical landmarks were photographed. Findings: The perianal and digital rectal examinations were normal. A 3 mm polyp was found in the splenic flexure. The polyp was removed with a jumbo cold forceps. Resection and retrieval were complete. No additional abnormalities were found on retroflexion. Electronically signed by Fly Cast M.D. Fly Cast D.O. 01/22/2025 12:43:06 PM Number of Addenda: 0 Note Initiated On: 01/22/2025 10:03 AM Procedure Code(s): --- Professional --- 13866, Colonoscopy, flexible; with biopsy, single or multiple --- Technical --- 64034, Colonoscopy, flexible; with biopsy, single or multiple Diagnosis Code(s): --- Professional --- Z12.11, Encounter for screening for malignant neoplasm of colon D12.3, Benign neoplasm of transverse colon (hepatic flexure orsplenic flexure) --- Technical --- Z12.11, Encounter for screening for malignant neoplasm of colon D12.3, Benign neoplasm of transverse colon (hepatic flexure orsplenic flexure) CPT copyright 2022 [employer] [place] [employer]. All rights reserved. The codes documented in this report are preliminary and upon spot checker reviewmay be revised to meet current compliance requirements. Recognized by the [place] [employer] for promoting quality in endoscopy Fly Cast DO ENDOSCOPY PROCEDURES Final Res ult * EGFR (12/23/2024) SCRIBED eGFR 104 EXTERNAL LAB SCRIBED eGFR 104 EXTERNAL LAB 12/23/2024 [facility] Provider MD HEALTH MAINTENANCE Final Result Performing Organization Address City/[facility] Co de Phone Number EXTERNAL LAB * TSH (12/23/2024) Scribed TSH 1.59 0.40 - 4.50 mcU/mL EXTERNAL LAB Blood 12/23/2024 Result [facility] Provider MD LAB BLOOD ORDERABLES Pita l Result Performing Organization Address [facility] Co de Phone Number EXTERNAL LAB * (ABNORMAL) Hemoglobin A1c (12/23/2024) [facility] SCRIBED Hemoglobin A1c 6.3(A) 4.0 - 5.6 % EXTERNAL LAB Blood 12/23/2024 Result [facility] Provider MD LAB BLOOD ORDERABLES Pita l Result Performing Organization Address [facility] Co de Phone Number EXTERNAL LAB * (ABNORMAL) Lipid panel (12/23/2024) Pathologist [facility] SCRIBED Cholesterol, Total 203(A) 30 - 199 mg/dL EXTERNAL LAB SCRIBED Triglycerides 91 <=149 mg/dL EXTERNAL LAB SCRIBED HDL 52 >=40 mg/dL EXTERNAL LAB SCRIBED LDL 132(A) <=129 mg/dL EXTERNAL LAB Scribed Non-HDL Cholesterol 151 NONE mg/dL EXTERNAL LAB SCRIBED Total Cholesterol/HDL Ratio 4 NONE EXTERNAL LAB Blood 12/23/2024 Result [facility] Provider MD LAB BLOOD ORDERABLES Pita l Result Performing Organization Address City/[facility] Co de Phone Number EXTERNAL LAB * Comprehensive metabolic panel (12/23/2024) Pathologist [facility] SCRIBED Sodium 136 - - - mmol/L EXTERNAL LAB SCRIBED Potassium 3.8 - - - mmol/L EXTERNAL LAB SCRIBED Chloride 98 - - - mmol/L EXTERNAL LAB SCRIBED Carbon Dioxide 29 - - - mmol/L EXTERNAL LAB SCRIBED Anion Gap - - - - mmol/L EXTERNAL LAB SCRIBED Urea Nitrogen (BUN) 19 - - - mg/dl EXTERNAL LAB SCRIBED Creatinine 0.72 - - - mg/dl EXTERNAL LAB SCRIBED Glucose 92 - - - mg/dl EXTERNAL LAB SCRIBED Calcium 9.6 - - - mg/dl EXTERNAL LAB SCRIBED Bilirubin 0.6 - - - mg/dl EXTERNAL LAB SCRIBED Plasma Protein 7.0 - - - g/dl EXTERNAL LAB SCRIBED Albumin 4.5 - - - g/dl EXTERNAL LAB SCRIBED Alkaline Phosphatase 122 - - - Units/L EXTERNAL LAB SCRIBED Alanine Transaminase (ALT) 19 - - - Units/L EXTERNAL LAB SCRIBED Aspartate Transaminase (AST) 17 - - - Units/L EXTERNAL LAB SCRIBED eGFR 104 - - - EXTERNAL LAB SCRIBED eGFR 104 - - - EXTERNAL LAB Blood 12/23/2024 Historical Provider LAB BLOOD ORDERABLES Pita l Result EXTERNAL LAB * CA 125 (12/07/2024 9:02 AM CDT) Pathologist [facility] CA 125 ag 7.0 1.0 - 35.0 units/mL Comment: Interpretive Data The Carlos Manuel CA 125 assay procedure was used. Results from different manufacturers or methods may not be comparable. Serial testing should be performed using the same method. Testing performed by: [facility], [address] [place] [address]., [id number] Blood 12/07/2024 9:02 AM CDT 12/07/2024 1:19 PM CDT us Clarice Em MD LAB BLOOD ORDERABLES Fi nal Result [facility] [address] [facility] [place] [address] * Screening Mammogram Bilateral W Jaquan (12/07/2024 8:55 AM CDT) Anatomical Region Laterality Modality Breast Bilateral Mammography Impressions 12/09/2024 8:14 AM CDT Bilateral No evidence of malignancy in either breast. OVERALL BI-RADS FINAL ASSESSMENT: 1 - Negative RECOMMENDATION: Recommend bilateral annual screening mammography. Narrative 12/09/2024 8:14 AM CDT EXAMINATION: Screening Mammogram Bilateral W Jaquan: 12/07/2024 COMPARISON: Relevant prior studies available at the time of interpretation were reviewed, including the most recent mammogram on: 09/29/2023. TECHNIQUE: Mammography was performed with 2D and digital breast tomosynthesis (DBT) images. CAD was utilized. BREAST PARENCHYMAL COMPOSITION: There are scattered areas of fibroglandular density. FINDINGS: Bilateral There is no suspicious mass, calcification, or architectural distortion in either breast.There are benign calcifications in both breasts. us Self Screening Mammogram IMG MAMMO PROCEDURES Fi nal Result * (ABNORMAL) Diabetic Eye Exam (09/27/2024) Generic External Data Provider HEALTH MAINTENANC E Final Result * Hepatitis panel, acute Blood (07/11/2024 11:56 AM GEOTECHNICAL LABORATORY TECHNICIAN) Hep A IgM Nonreactive Nonreactive Comment: Interpretive Data: If Hep A IgM Ab is reported as Equivocal, a new sample should be drawn in two weeks for testing. Current interpretive data was last revised on 19. Testing performed by: [facility], [address] [place] [address], [place]., [id number] Hep B core IgM Nonreactive Nonreactive [facility] Comment: Interpretive Data If HepB Core IgM Ab is reported as Equivocal, a new sample should be drawn in two weeks for testing. Current interpretive data was last revised on 19. Testing performed by: [facility], [address] [place] [address], [place]., [address] Hep C Ab Nonreactive Nonreactive [facility] ([facility] Comment: Interpretive Data Nonreactive: Antibodies to HCV not detected. Does NOT exclude the possibility of recent exposure to HCV. Equivocal: Equivocal for HCV antibodies. Supplemental molecular testing will be automatically performed to determine infection status in accordance with current CDC screening recommendations. Reactive: Positive for HCV antibodies. This may represent current or past HCV infection. Supplemental molecular testing will be automatically performed to determine current infection status in accordance with current CDC screening recommendations. Interpretive data was last revised on 2019. Testing performed by: [facility], [address] [place] [address]., [id number] HepBsAg Nonreactive Nonreactive [facility] Comment:Testing performed by : [facility], [address] [place] [address]., [id number] Blood 07/11/2024 11:5 6 AM GEOTECHNICAL LABORATORY TECHNICIAN 07/11/2024 6:27 PM GEOTECHNICAL LABORATORY TECHNICIAN Bayron Zee MD LAB MICROBIOLOGY - GENERAL ORD ERABLES Final Result Performing Organization Address [facility]/ZIP Co de Phone Number [facility] [address] [facility] Department of [place], [place] [id number] * Albumin Creatinine Ratio, Urine (07/05/2024 9:07 AM GEOTECHNICAL LABORATORY TECHNICIAN) Albumin Ur <12.0 mg/L Comment: Interpretive Data No reference range established. Current interpretive data was last revised 2018. Creatinine Ur 17.8 mg/dL [facility] Comment: Interpretive Data No reference range established. Current interpretive data was last revised 2018. Albumin Creatinine Ratio, Ur See Comment 1 - 29 [facility] Comment:Unable to calculate Urine 07/05/2024 9:07 AM GEOTECHNICAL LABORATORY TECHNICIAN 07/05/2024 3:49 PM GEOTECHNICAL LABORATORY TECHNICIAN us Shameka Alberts NP LAB URINE ORDERABLES Final Resu lt Performing Organization Address City/[facility]/ZIP Co de Phone Number [facility] [address] [facility] Department of Laboratories [place], [place] [phone] from Last 3 Months or Most Recently Relevant to Health Maintenance Insurance [employer] [place] [employer] [place] Advance Directives For more information, please contact: [phone] * Full Code (Latest Code Status on File) Date Activated Date Inactivated Comments 01/22/2025 10:19 AM 01/22/2025 5:21 PM * Full Code Date Activated Date Inactivated Comments 01/22/2025 10:19 AM 01/22/2025 10:19 AM * Full Code Date Activated Date Inactivated Comments 02/01/2024 9:23 AM 02/02/2024 7:21 PM * Full Code Date Activated Date Inactivated Comments 12/21/2023 10:29 AM 12/22/2023 5:15 AM * Full Code Date Activated Date Inactivated Comments 05/29/2023 6:51 PM 05/31/2023 8:49 PM Care Teams Welding Machine Operator Resistance Relationship Specialty Start Date End Date Ashleigh Tidwell MD [address] [facility] [address] [place] [address] PCP - General Family Medicine 08/01/22 Shameka Alberts, KATELYN [address] [place] [address] Nurse Practitioner Endocrinology Diabetes & Metabolism 01/15/25
--- OUTSIDE RECORDS SUMMARY | 2025-02-18 10:34 | XMS_ITS | Encounter Summary ---
Author Organization [facility] Healthcare Address [address] [place] [address] Care Team Providers Care Home Restoration Service Supervisor Name Role Phone Ashleigh Rodrigues MD Primary Care Provide r Shameka Araujo AIR BRUSH DECORATOR Unavailable [phone] Encounter Details Date Type Department Care Team (Latest Contact Info) Description 01/25/2025 Results Follow-Up [facility] Gastroenterology at [address] [place] [id number] [employer], [address] [place] [address] Surgical pathology Social History Tobacco Use Types Packs/Day Years Used Date Smoking Tobacco: Former Cigarettes 2 16 Q uit: 06/2022 Smokeless Tobacco: Former Alcohol Use Standard Drinks/Week Comments Yes 0 (1 standard drink = 0.6 oz pur e alcohol) [facility] Utilities Answer Date Recorded In the past 12 months has Style on Screen, gas, oil, or water company threatened to shut off services in your [...] often do you attend chur ch or gnosticist services? Never 05/30/2023 Do you belong to any clubs o r organizations such as judaism groups, unions, fraternal or athletic groups, or [...] place to sleep or slept in a chcf (including now)? No 05/30/2023 AUDIT-C Answer Date [...] on file Sexual Orientation Not on file documented as of this encounter Plan of Treatment Not on file documented as of this encounter Visit Diagnoses Not on filedocumented in this encounter Care Teams Home Restoration Service Supervisor Relationship Specialty Start Date End Date Ashleigh Rodrigues MD [address] [facility] [address] [place] [id number] PCP - General Family Medicine 08/01/22 Shameka Araujo, KATELYN [address] [address] Nurse Practitioner Endocrinology Diabetes & Metabolism 01/15/25 documented as of this encounter
--- OUTSIDE RECORDS SUMMARY | 2025-02-18 10:34 | XMS_ITS ---
Author Organization [facility] Address [address] [place] [id number] Care Team Providers Care Program Manager Environmental Planning Name Role Phone Ashleigh Tidwell MD Primary Care Provide r Shameka Alberts BAR PILOT Unavailable [phone] Active Problems Patient Care Coordination No te Formatting of this note is d ifferent from the original. 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) s/p C6 of carbo/doce?07/19/23 Caris: p53 and [...] jan was unremarkable EKG was unchanged in feb Declines meclizine Most likely orthostatics given her bp in office today is borderline although orthostatics at previous office visits were negative Recommend reaching out to her internal medicine nurse practitioner to lower one of her bp medications Get up slow, stay hydrated Will also refer to neurology just to be sure nothing neurological is occurring but ct scan in feb was reassuring Assessment & Plan (06/18/2024 12:50 PM NET APPLICATION SUPPORT SPECIALIST): New concern Not at goal Orthostatics in [...] 06/18/2024 Assessment & Plan (06/18/2024 12:49 PM NET APPLICATION SUPPORT SPECIALIST): Chronic Initially improved and now symptoms are back We will order CBC B12 TSH iron panel Follow-up pending above results Pain of finger of left hand 06/18/2024 Assessment & Plan (06/18/2024 12:51 PM NET APPLICATION SUPPORT SPECIALIST): New concern 2/2 fracture Continue splint and tylenol for pain Referral to ortho for further evaluation and recommendation Rash 05/23/2024 Assessment & Plan (05/23/2024 11:15 AM NET APPLICATION SUPPORT SPECIALIST): New concern Derm saw granuloma but they also mentioned concern for sarcoidosis Will refer to rheumatology for further evaluation History of vitamin D deficiency 05/23/2024 Assessment & Plan (05/23/2024 11:16 AM NET APPLICATION SUPPORT SPECIALIST): Vit d levels ordered Pending results will [...] anxiety F/u in 3 months at annual dexcom continuous glucose monitoring device 12/07 Assessment & Plan (10/28/2024 8:52 AM CDT): Continuous glucose monitor (cgm) applied from 10/15/2024 to 10/28/2024 This device was placed for monitor and treatment of blood sugar. Interpretation of data- 98% time in range. Average blood sugar- 118, 2% hyperglycemia. 0% hyperglycemia. Assessment & Plan (06/28/2024 8:44 AM NET APPLICATION SUPPORT SPECIALIST): Continuous glucose monitor (cgm) applied from 06/15/2024 [...] pharmacy Assessment & Plan (05/22/2024 12:32 PM NET APPLICATION SUPPORT SPECIALIST): Chronic stable Cont gabapentin as per Oncology [...] 01/31/2023 Assessment & Plan (05/22/2024 12:28 PM NET APPLICATION SUPPORT SPECIALIST): Bp in the office today BP Readings [...] prescribed. Assessment & Plan (06/07/2023 8:36 AM NET APPLICATION SUPPORT SPECIALIST): This is a chronic condition which is at goal of less than 140/90 Personally reviewed labs. Continue spironolactone, amlodipine, Lasix, metoprolol Encouraged to monitor weight and B/P at home Encouraged to take medications as prescribed. Assessment & Plan (05/10/2023 3:04 PM NET APPLICATION SUPPORT SPECIALIST): Bp in the office today BP Readings [...] Found during hysterectomy Has upcoming appt with vtc technician onc on Feb 22 Continue following with specialist Severe episode of recurrent major depressive disorder, without psychotic features 09/21/2022 Assessment & Plan (05/22/2024 12:31 PM NET APPLICATION SUPPORT SPECIALIST): Continue sertraline 150mg daily -SI/-HI Reminded her to report to the ED or call EMS should SI/HI develop Continue with therapy F/u in 6 months Assessment & Plan (05/09/2023 11:02 PM NET APPLICATION SUPPORT SPECIALIST): Continue sertraline 100mg daily -SI/-HI Reminded her [...] 06/23/2022 Assessment & Plan (05/22/2024 12:32 PM NET APPLICATION SUPPORT SPECIALIST): Stable / clinically quiescent. Will continue to monitor. Assessment & Plan (01/30/2023 6:58 AM CDT): Stable / clinically quiescent. Will continue to monitor. Hyperlipidemia associated with type 2 diabetes tricia alicea 06/23/2022 Assessment & Plan (05/22/2024 12:27 PM NET APPLICATION SUPPORT SPECIALIST): Stable Continue atorvastatin 80mg daily Assessment & [...] prescribed. Assessment & Plan (06/07/2023 8:35 AM NET APPLICATION SUPPORT SPECIALIST): This is a chronic condition which is [...] (01/05/2022): Added automatically from request for surgery [id number] Chronic nausea 12/10/2021 Assessment & Plan (03/18/2024 1:05 PM NET APPLICATION SUPPORT SPECIALIST): Refilled Marcelafredy as courtesy for patient today Assessment & Plan (12/10/2021 10:39 AM CDT): Unknown etiology Will continue with compazine for now Will eventually send to GI for further evaluation History of uterine fibroid 11/16/2021 History of abnormal cervical Pap smear Assessment & Plan (11/16/2021 6:54 PM CDT): Obtain pap/vtc technician history from [facility]. STEVEN signed. Class 2 severe obesity due t o excess calories with serious comorbidity and body mass index (BMI) of 37.0 to 37.9 in adult 11/16/2021 Assessment & Plan (05/23/2024 11:17 AM NET APPLICATION SUPPORT SPECIALIST): She was counseled on the importance of maintaining a healthy weight and the risks of obesity. Weight loss recommended. Encourage 150min/ week of exercise Encourage 1500 calories in a day for weight loss On ozempic to help with weight loss She is down 20lbs since oct Assessment & Plan (03/18/2024 1:05 PM NET APPLICATION SUPPORT SPECIALIST): Chronic, improving but not at goal BMI [...] condition Assessment & Plan (06/07/2023 8:34 AM NET APPLICATION SUPPORT SPECIALIST): This is a chronic condition which is [...] 09/28/2021 Assessment & Plan (05/22/2024 12:26 PM NET APPLICATION SUPPORT SPECIALIST): stable Continue following with cardiology Continue with aspirin and statin and blood pressure control Assessment & Plan (01/30/2023 6:56 AM CDT): Found on cardiac cath One stent placed Continue following with cardiology Continue with aspirin and statin and blood pressure control Assessment & Plan (05/31/2022 1:50 PM NET APPLICATION SUPPORT SPECIALIST): Found on cardiac cath One stent placed Recent internal medicine nurse practitioner left the practice and in need of a new internal medicine nurse practitioner Referral placed Continue with aspirin and statin [...] 09/22/2021 Assessment & Plan (06/02/2022 11:27 AM NET APPLICATION SUPPORT SPECIALIST): On Humulin R U500 Insulin caution to [...] 08/27/2021 Assessment & Plan (06/28/2024 9:27 AM NET APPLICATION SUPPORT SPECIALIST): >>ASSESSMENT AND PLAN FOR TYPE 2 DIABETES [...] atorvastatin Assessment & Plan (06/28/2024 9:27 AM NET APPLICATION SUPPORT SPECIALIST): >>ASSESSMENT AND PLAN FOR TYPE 2 DIABETES MELLITUS WITH HYPOGLYCEMIA WITHOUT COMA, WITH LONG-TERM CURRENT USE OF INSULIN (HCC) WRITTEN ON 03/18/2024 1:04 PM BY DALLAS MOJICA NP Follows with endocrinology Well controlled and at goal at this time Patient monitors with CGM; advised her that she may notice a spike in blood sugars while on Prednisone. 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 last dilated eye exam was at [facility] optometry Monofilament foot exam completed. protective senses [...] prescribed. 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 sees Dr. Vann ( ) in [place], [place] monthly for eye injections Monofilament foot [...] WRITTEN ON 08/31/2022 10:14 AM BY SHAMEKA ALBERTS, KATELYN This is a chronic condition which is not at goal of LDL less than 70 Continue atorvastatin Lipid panel repeated Encouraged to eat healthy, include fresh fruits and vegetables daily and avoid eating fried foods more than once per week. Encouraged to take medications as prescribed. Assessment & Plan (06/28/2024 9:27 AM NET APPLICATION SUPPORT SPECIALIST): >>ASSESSMENT AND PLAN FOR TYPE 2 DIABETES [...] prescribed. 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 Goal is less than 70. Personally reviewed lipid panel. LDL - 70, currently on atorvastatin. Encouraged to eat healthy, include fresh fruits and vegetables daily and avoid eating fried foods more than once per week. Encouraged to take medications as prescribed. Assessment & Plan (06/28/2024 9:27 AM NET APPLICATION SUPPORT SPECIALIST): >>ASSESSMENT AND PLAN FOR TYPE 2 DIABETES [...] No history of macrovascular disease - [place]. >>ASSESSMENT AND PLAN FOR TYPE 2 DIABETES [...] prescribed. Assessment & Plan (06/28/2024 9:27 AM NET APPLICATION SUPPORT SPECIALIST): >>ASSESSMENT AND PLAN FOR TYPE 2 DIABETES [...] visit Assessment & Plan (05/22/2024 12:30 PM NET APPLICATION SUPPORT SPECIALIST): Chronic Referred to Psychiatry cont sertraline 150mg [...] 08/27/2021 Assessment & Plan (05/23/2024 10:30 AM NET APPLICATION SUPPORT SPECIALIST): Labs pending Pap smear: s/p hysterectomy Mammogram [...] disorder, severe, in sustained remis cande 03/27/2020 Current Treatment and Therapy Plans No current plan information found. Past Treatment and Therapy Plans Line Care Plan Name Start Date Discontinue Date Treatment Medications Discontinue Reason Plan Provider IV Maintenance Therapy Plan 03/28/2023 12/10/2024 No medications scheduled. Therapy Complete Clarice Em MD Oncology Chemotherapy Treatment Plan Name Start Date Discontinue Date Treatment Medications Discontinue Reason Plan Provider Cycles DOCEtaxel / CARBOplatin 21 Day Cycles - STUDENT OFFICER 03/24/20 23 08/31/2023 CARBOplatin (PARAPLATIN) IVPB in 250 mL (by AUC: GOG)DOCEtaxel (TAXOTERE) IVPB in 250 mL (vial 10mg/mL) Therapy Complete Clarice Em MD 6 of 6 cycles started Oncology Supportive Care Therapy Plan Plan Name Start Date Discontinue Date Treatment Medications Discontinue Reason Plan Provider Hydration Therapy Plan 07/05/2023 12/10/2024 No medications scheduled. Therapy Complete Clarice Em MD Lifetime Dose Tracking * Chemical Lifetime Dose Automatic Entry Manual Entr y Fluoro Time 4.1 minutes 1.4 minutes 2.7 minutes Air kerma at the reference point (Ka,r) 1,015 mGy 8 mGy 1,007 mGy DLP 2,600 mGycm 2,600 mGycm 0 mGycm Resolved Problems Problem Noted Date Diagnosed Date [...] from August unremarkable Instructed to call her internal medicine nurse practitioner for cardiac clearance She is medically optimized pending cardiac clearance Chest pain 06/29/2022 09/21/2022 Overview (06/29/2022): Added automatically from request for surgery [id number] Shortness of breath 05/31/2022 09/22/19 Assessment & Plan (05/31/2022 2:56 PM NET APPLICATION SUPPORT SPECIALIST): Referral to pulmonary upon request of patient Left forearm pain 09/28/2021 09/21/2022 Assessment & Plan (09/28/2021 1:23 PM CDT): MSK Naproxen 500mg bid for 3 days and then as needed. Hold for 4 days prior to seeing the internal medicine nurse practitioner in case they want to do any intervention Can use heat prn F/u in 1 month
--- OUTSIDE RECORDS SUMMARY | 2025-02-18 10:35 | XMS_ITS | Clinical Summary ---
Author Organization [facility] Address [address] [place] [address] Phone Care Team Providers Care Acds Block 1 Operator Name Role Phone Ashleigh Rodrigues MD Primary Care Provide r Gilles BUSTAMANTE MD, [facility] Unavailable [phone] Allergies Active Allergy Reactions Criticality Noted Date Comments Iodinated Contrast Media Other (see Comments) Low 08/27/2021 Sneezing Pregabalin Other (see Comments) 08/08/2024 Pt states that lyrica causes her to become agitated. Nitrofurantoin Hives 08/01/2024 Penicillins Anaphylaxis,Unknown High 05/13/2020 Oxycodone-Acetaminophen Itching 11/14/2022 Medications albuterol 108 (90 Base) MCG/ACT Aerosol Solution INHALE 2 PUFFS INTO LUNGS EVERY 4 HOURS NEEDED 3 Active amLODIPine (NORVASC) 5 MG Tablet every morning. 3 Active Aspirin Low Dose 81 MG Tablet Delayed Response 3 Active atorvastatin (LIPITOR) 40 MG Tablet Take 40 mg by mouth every evening. 3 Active Blood Glucose Monitoring Suppl (Fifty50 Glucose Meter 2.0) w/Device Kit Use daily as directed for monitoring of blood sugar for diabetes. e11.65 2 Active clopidogrel (PLAVIX) 75 MG Tablet every morning. 3 Active Cyanocobalamin (VITAMIN B-12) 100 MCG Tablet Take 100 mcg by mouth daily. 2 Active Dulaglutide (Trulicity) 3 MG/0.5ML Solution Pen-injector 3 mg by Subcutaneous route once a week. Fridays 3 Active DULoxetine (CYMBALTA) [address] Particles 1 Active empagliflozin (JARDIANCE) 25 MG Tablet Take 25 mg by mouth every morning. 3 Active famotidine (PEPCID) 20 MG Tablet Take 1 Tablet by mouth 2 times daily. 3 Active ferrous sulfate 325 (65 Fe) MG Tablet Take 325 mg by mouth as needed. 1 Active furosemide (LASIX) 20 MG Tablet Take 20 mg by mouth. 2 Active gabapentin (NEURONTIN) 600 MG Tablet Take 600 mg by mouth 3 times daily. 3 Active Glucagon (Gvoke HypoPen 2-Pack) 1 MG/0.2ML Solution Auto-injector 1 mg by Subcutaneous route. 3 Active insulin regular human, CONCENTRATED, (HumuLIN R U-500 KwikPen) 500 UNIT/ML Solution Pen-injector 110 UNITS IN THE MORNING 80 UNITS EVENING 2 Active Easy Touch Lancets 32G/Twist Misc Use to check blood sugar twice a day. May use another gauge as available. e11.65 2 Active metFORMIN (GLUCOPHAGE-XR) 500 MG TABLET SR 24 HR Take 500 mg by mouth 2 times daily. 1 Active lovastatin (MEVACOR) 40 MG Tablet TAKE 1 TABLET WITH THE EVENING MEAL ONCE A DAY ORALLY 60 DAYS 0 Active metoprolol Succinate (TOPROL-XL) 50 MG TABLET SR 24 HR Take 1 Tablet by mouth every morning. 2 Active nitroGLYCERIN (NITROSTAT) 0.4 MG SL Tablet PLEASE SEE ATTACHED FOR DETAILED DIRECTIONS 2 Active Misc Natural Products (Candicidal) Capsule Take 1 Capsule by mouth daily. Active Norethindrone Acetate 5 MG Tablet nightly. 3 Active OLANZapine (ZYPREXA) 2.5 MG Tablet Take 2.5 mg by mouth every morning. 0 Active prochlorperazine (COMPAZINE) 10 MG Tablet Take 10 mg by mouth 4 times daily. 0 Active sertraline (ZOLOFT) 100 MG Tablet every morning. 3 Active spironolactone (ALDACTONE) 25 MG Tablet 3 Active terconazole (TERAZOL 7) 0.4 % Cream 3 Active triamcinolone (KENALOG) 0.1 % Ointment 3 Active oxybutynin (DITROPAN-XL) 10 MG TABLET SR 24 HRIndications:Ur ge urinary incontinence Take 1 Tablet by mouth daily. 90 Tablet 3 3 Active Additional Information Patient taking differently:10 mg OralEVERY MORNING, Reported on 11/24/2022 naproxen (NAPROSYN) 500 MG Tablet Take 1 Tablet by mouth 2 times daily as needed for Moderate or more severe pain. 20 Tablet 5 Active Active Problems No known active problems Immunizations Immunization Administration Dates Next Due Influenza Vaccine, Quadrivalent, PF 04/19/2022 Influenza Vaccine,unspecified Formulation 2021 TDAP Vaccine 10/10/2020 Family History Medical History Relation Name Comments Cancer Mother LUNG Chronic Obstructive Pulmonary Disease Mother Heart Disease Mother Relation Name Status Comments Father Alive Mother Social History Tobacco Use Types Packs/Day Years Used Date Smoking Tobacco: Former Cigarettes Q uit: 2018 Smokeless Tobacco: Never Alcohol Use Standard Drinks/Week Comments Yes 0 (1 standard drink = 0.6 oz pur e alcohol) ONCE OR TWICE A MONTH Sexually Active Control Partners Comments Not Currently Comments No Sex and Gender Information Value Date Recorded Sex Assigned at Female 05/16/2024 1:11 PM STORE MANAGEMENT TRAINEE Legal Sex Female 11:00 AM CDT Gender Identity Female 05/16/2024 1:11 PM STORE MANAGEMENT TRAINEE Sexual Orientation Lesbian or Beauchamp 05/16/2024 1: 11 PM STORE MANAGEMENT TRAINEE Last Filed Vital Signs Vital Sign Reading Time Taken Comments Blood Pressure 137/65 08/18/2024 10:00 AM CDT Pulse 96 08/18/2024 10:00 AM CDT Temperature 36.4 C (97.6 F) 08/18/2024 9:55 AM CDT Respiratory Rate 18 08/18/2024 9:55 AM CDT Oxygen Saturation 96% 08/18/2024 10:00 AM CDT Inhaled Oxygen Concentration - - Weight 108.9 kg (240 lb) 08/18/2024 9:55 AM CDT Height 162.6 cm (5' 4) 08/18/2024 9:55 AM CDT Body Mass Index 41.2 08/18/2024 9:55 AM CDT Plan of Treatment Health Maintenance Due Date Last Done Comments Hepatitis C Virus (HCV) Screening 1977 Hepatitis B Immunization (1 of 3 - 19+ 3-dose series) 1996 Cologuard 2022 Colonoscopy 2022 Colorectal Cancer Screening 2022 Immunochemical Fecal Occult Blood 2022 Mammogram 09/28/2024 09/29/2023, 09/20/2022 Influenza Immunization (#1) 01/06/202512/08, 03/21/2023, 04/19/2022, Additional history exists SARS-COV-2 Immunization ( season) 2025 09/06/2020, 08/18/2020 Td Immunization Every 10 Years (Adults With 1 Tdap) 10/10/2030 10/10/2020 Respiratory Syncytial Virus (RSV) Immunization (Adult) (1 - 1-dose 75+ series) 2052 DTaP/Tdap/Td Immunization Discontinued 10/10/2020 Discussion re Starting/Frequency of Mammograms Completed 09/29/2023, 09/20/2022 Pneumococcal Immunization Combined Aged Out 12/11/2023 No longer eligible based on patient's age to complete this topic Human Papillomavirus (HPV) Immunization Aged Out No longer eligible based on patient's age to complete this topic Meningococcal Immunization (ACWY) Aged Out No longer eligible based on patient's age to complete this topic Rotavirus Immunization Aged Out No lo nger eligible based on patient's age to complete this topic Insurance [facility] * Guarantor: [facility] Account Type Relation to Patient Date of Phone Billing Address Institutional Other [address] [place] [address] [facility] [place] [place] [address] PA TPL Care Teams Acds Block 1 Operator Relationship Specialty Start Date End Date Ashleigh Rodrigues MD [address] [address] PCP - General Family Medicine 11/14/22 Randee Campoverde III, MD [address] [place] [address] Consulting Physician Urology 11/14/22
--- OUTSIDE RECORDS SUMMARY | 2025-02-18 10:35 | XMS_ITS | Encounter Summary ---
Author Organization [facility] Address [address] [place] [address] Phone Care Team Providers Care Hotel Front Office Manager Name Role Phone Ashleigh Rodrigues MD Primary Care Provide r Gilles BUSTAMANTE MD, Randee Unavailable Reason for Visit * Reason Onset Date Comments Prior Authorization 03/07/2023 Insurance De nied MRI - P2P Needed Encounter Details Date Type Department Care Team (Late st Contact Info) Description 03/07/2023 Telephone [facility] Outpatient [address] [place] [id number] Lana Mcarthur, JUAN M, NUDE MODEL [address] [place] [address] Prior Authorization (Insurance Denied MRI - P2P Needed) Social History Tobacco Use Types Packs/Day Years Used Date Smoking Tobacco: Former Cigarettes Q uit: 2018 Smokeless Tobacco: Never Alcohol Use Standard Drinks/Week Comments Yes 0 (1 standard drink = 0.6 oz pur e alcohol) ONCE OR TWICE A MONTH Sexually Active Control Partners Comments Not Currently Comments No Sex and Gender Information Value Date Recorded Sex Assigned at Female 05/16/2024 1:11 PM DESIGN ANALYST Legal Sex Female 11:00 AM CDT Gender Identity Female 05/16/2024 1:11 PM DESIGN ANALYST Sexual Orientation Lesbian or [place] 05/16/2024 1: 11 PM DESIGN ANALYST COVID-19 Exposure Response Date Recorded In the last 10 days, have yo u been in contact with someone who was confirmed or suspected to have Coronavirus/COVID-19? No / Unsure 02/24/2023 2:50 PM CDT documented as of this encounter Miscellaneous Notes * Telephone Encounter - Nancy Mejias RN - 03/09/2023 3:05 PM CDT MRI for this coming Monday cancelled ( patient made aware ) pending [facility] approval. * Telephone Encounter - Aniyah España Estella - 03/07/2023 10:24 AM CDT Images from the original note were not included. Auth Denied-P2P offered - Insurance -[facility] still pending information Ordering Provider: Internal Appointment Info: Clinic: [facility] Provider: [email or web address] Appt Date/Time: Monday 12:00 PM Payor + Plan: MEDICAID [facility] CPT/Test: 38276 Authorization denied through: [facility] Estimated Amount [Full Charges]: $3528 Denial Rationale Your doctor???s request for a(n) Shoulder MRI (left) (Magnetic Resonance Imaging - pictures of inside your shoulder) has been denied. ??? [facility] Clinical Guideline 057-3 for Upper Extremity MRI was used to make this decision. ??? This decision was based on the notes that were sent: you have a shoulder problem. ??? Before we can approve, we need the following notes: doctor's notes that say you did exercises (physical therapy, chiropractic treatments, or medically directed home exercise program) for four weeks in the last six months. We also need to know the number of visits you went to. We need to know the dates you did those exercises and that you did not get better. These were not given to us. Add'l Steps Taken (Pt Notified, Reached out to Provider, etc.): notified referring provider and RN team via TE Peer to Peer review offered by Payer: Yes Peer to Peer review expires: 10 days (03/17/23) Case #: [id number] Phone #: [phone] Physician: Lana Crawofrd Notified? Yes Note for ordering office: If patient wishes to cancel the appointment, please complete cancellationprocess from the patient's appointment desk. Notification Made to Patient: No, giving provider opportunity to overturn denial documented in this encounter Plan of Treatment Not on file documented as of this encounter Visit Diagnoses Not on filedocumented in this encounter Care Teams Hotel Front Office Manager Relationship Specialty Start Date End Date Ashleigh Rodrigues MD [address] [place] [address] [place] [address] PCP - General Family Medicine 11/14/22 Randee Campoverde III, MD [address] [place] [address] Consulting Physician Urology 11/14/22 documented as of this encounter
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
--- OUTSIDE RECORDS SUMMARY | 2025-02-18 10:35 | XMS_ITS | Clinical Summary ---
Author Organization [facility] Address [address] [facility] [address] [address] [facility] [address] [place] [place] [address] Phone Care Team Providers Care Vendor Analyst Name Role Phone Unavailable Primary Care Provider Unavailabl e Allergies Active Allergy Reactions Criticality Noted Date Comments Iodine Other (See Comments) 06/27/2024 sneezing Latex Rash Low 06/27/2024 Nitrofurantoin Monohyd/M-Cryst Hives High 06/27 Oxycodone-Acetaminophen Hives,Itching High Penicillins Anaphylaxis High 06/27/2024 Medications gabapentin (NEURONTIN) 800 mg tablet Take 800 mg by mouth 3 times daily. Active tirzepatide (Mounjaro) 2.5 mg/0.5 mL Pen Injector Inject 2.5 mg by subcutaneous injection every 7 days. Active armodafiniL 200 mg Tablet Take 200 mg by mouth daily. Active metoprolol tartrate (LOPRESSOR) 50 mg tablet Take 50 mg by mouth daily. Active isosorbide mononitrate (IMDUR) 30 mg Extended Release 24 hour tablet Take 30 mg by mouth daily in the morning. Active spironolactone (ALDACTONE) 25 mg tablet Take 25 mg by mouth 2 times daily. Active atorvastatin (LIPITOR) 80 mg tablet Take 80 mg by mouth daily at bedtime. Active amLODIPine (NORVASC) 5 mg tablet Take 5 mg by mouth daily. Active aspirin (ECOTRIN EC) 81 mg Tablet, Delayed Release (E.C.) Take 81 mg by mouth daily. Active pantoprazole (PROTONIX) 40 mg Tablet, Delayed Release (E.C.) Take 40 mg by mouth daily. Active clopidogreL (PLAVIX) 75 mg Tablet Take 75 mg by mouth daily. Active hydrOXYzine HCL (ATARAX) 25 mg tablet Take 25 mg by mouth 3 times daily as needed for Itching. Active traMADoL (ULTRAM) 50 mg tablet Take 50 mg by mouth every 6 hours as needed for Pain. Active furosemide (LASIX) 20 mg tablet Take 20 mg by mouth 2 times daily. Active empagliflozin (Jardiance) 25 mg tablet Take 25 mg by mouth daily in the morning. Active Blood-Glucose Sensor (Dexcom G7 Sensor) Device by [facility]Non-Drug; Combo Route) route. Active clobetasoL (TEMOVATE) 0.05 % Cream Apply to affected area 2 times daily. Active tacrolimus (PROGRAF) 1 mg capsule Take 1 mg by mouth 2 times daily. Active sennosides-docu sate sodium (SENNA-S) 8.6-50 mg tablet Take 1 Tablet by mouth 2 times daily. Active sertraline (ZOLOFT) 100 mg tablet Take 200 mg by mouth daily. Active MULTIPLE MINERALS ORAL Take by mouth. A ctive multivitamin (DAILY-NOEL) tablet Take 1 Tablet by mouth daily. Active OMEGA-3 FATTY ACIDS-FISH OIL ORAL Take by mouth. Activ e TURMERIC ORAL Take by mouth. A ctive Social History Tobacco Use Types Packs/Day Years Used Date Smoking Tobacco: Never Tobacco Cessation:Counseling Given: Not Answered Alcohol Use Standard Drinks/Week Comments Not Currently 0 (1 standard drink = 0.6 oz pur e alcohol) Feeling Safe Answer Date Recorded Are you in a relationship wi th someone who hurts you emotionally and/or physically? No 06/27/2024 Comments No Sex and Gender Information Value Date Recorded Sex Assigned at Not on file Legal Sex Female 2:39 PM FOOT SETTER Gender Identity Not on file Sexual Orientation Not on file Last Filed Vital Signs Vital Sign Reading Time Taken Comments Blood Pressure - - Pulse - - Temperature - - Respiratory Rate - - Oxygen Saturation - - Inhaled Oxygen Concentration - - Weight 113.4 kg (250 lb) 06/27/2024 3:22 PM FOOT SETTER Height 162.6 cm (5' 4) 06/27/2024 3:22 PM FOOT SETTER Body Mass Index 42.91 06/27/2024 3:22 PM FOOT SETTER Plan of Treatment Health Maintenance Due Date Last Done Comments Pre-Diabetes and Diabetes Screening 1977 DTAP/TDAP/TD VACCINES (1 - Tdap) 1996 HEPATITIS B VACCINES (1 of 3 - 19+ 3-dose series) 1996 HPV/Cotest (21-29) 1998 CERVICAL CANCER SCREENING 08/12/2007 HPV/Cotest (30-65) 08/12/2007 PAP SMEAR 08/12/2007 BREAST CANCER SCREENING 2017 COLORECTAL SCREENING 2022 Colorectal Cancer Screening 2022 FIT-DNA Q 3 years 2022 FIT/FOBT Q 1 year 2022 Flex Sig/CT Colonography Q 5 years 2022 INFLUENZA VACCINE (#1) 2024 COVID-19 Vaccine (2024- season) 01/06/202506/2020, 08/18/2020 Insurance BCBS OUT OF STATE
--- OUTSIDE RECORDS SUMMARY | 2025-02-18 10:35 | XMS_ITS | Encounter Summary ---
Author Organization [facility] Address [address] [place] [address] Phone Care Team Providers Care Risk Control Analyst Name Role Phone Ashleigh Rodrigues MD Primary Care Provide r Gilles BUSTAMANTE MD, Randee Unavailable [phone] Encounter Details Date Type Department Care Team (Late st Contact Info) Description 01/11/2023 Lab Requisition [facility] [address] [place] [address] Michel Giles, PAC [address] [place] [address] Encounter for pre-employment examination Social History Tobacco Use Types Packs/Day Years Used Date Smoking Tobacco: Former Cigarettes Q uit: 2018 Smokeless Tobacco: Never Alcohol Use Standard Drinks/Week Comments Yes 0 (1 standard drink = 0.6 oz pur e alcohol) ONCE OR TWICE A MONTH Sexually Active Control Partners Comments Not Currently Comments No Sex and Gender Information Value Date Recorded Sex Assigned at Female 05/16/2024 1:11 PM SOCIAL MEDIA COORDINATOR Legal Sex Female 11:00 AM CDT Gender Identity Female 05/16/2024 1:11 PM SOCIAL MEDIA COORDINATOR Sexual Orientation Lesbian or [place] 05/16/2024 1: 11 PM SOCIAL MEDIA COORDINATOR COVID-19 Exposure Response Date Recorded In the last 10 days, have yo u been in contact with someone who was confirmed or suspected to have Coronavirus/COVID-19? No / Unsure 01/11/2023 11:29 AM CDT documented as of this encounter Plan of Treatment Not on file documented as of this encounter Procedures Procedure Name Priority Date/Time Associated Diagnosis Comments QUANTIFERON-TB GOLD PLUS Routine 01/11/2023 11:00 AM CDT Encounter for pre-employment examination documented in this encounter Results * QUANTIFERON-TB GOLD PLUS (01/11/2023 11:00 AM CDT) NIL CONTROL 0.01 <8.01 IU/mL 01/13/2023 10:20 AM CDT [facility] TB ANTIGEN 1 0.00 <0.35 IU/mL 01/13/2023 10:20 AM CDT [facility] TB ANTIGEN 2 0.01 <0.35 IU/mL 01/13/2023 10:20 AM CDT [facility] MITOGEN CONTROL 9.99 >0.49 IU/mL 01/14/20 10:20 AM CDT [facility] INTEPRETATION TB NEGATIVE NEGATIVE, NEGATIVE (TB antigen response less than 25% of internal negative control value) 01/13/2023 10:20 AM CDT [facility] Comment:No immune response t o Mycobacterium tuberculosis antigens was noted. M. tuberculosis infection unlikely. Blood No Phlebotomy Charged / Unknown 01/11/2023 11:00 AM CDT 01/11/2023 12:35 PM CDT Narrative [facility] - 01/13/2023 10:20 AM CDT A POSITIVE QUANTIFERON-TB GOLD PLUS RESULT SHOULD NOT BE THE SOLE OR DEFINITIVE BASIS FOR DETERMINING INFECTION WITH M.TUBERCULOSIS. Diagnosing or excluding tuberculosis disease, and assessing the probability of LTBI, requires a combination of epidemiological, historical, medical and diagnostic findings (e.g., acid fast bacilli (AFB) smear and culture, chest xray) that should be taken into account when interpreting QFT-Plus results. Furthermore, the magnitude of the measured gamma interferon level cannot be correlated to stage or degree of infection, level of immune responsiveness, or likelihood for progression to active disease. The Nil control adjusts for background (e.g., elevated levels of circulating gamma interferon or presence of heterophile antibodies). The Mitogen control serves as an internal positive control and verifies each specimen tested can produce a gamma interferon response. Low mitogen may occur with insufficient lymphocytes, reduced lymphocyte activity due to improper specimen handling, filling/mixing of the mitogen tube, or inability of the patient's lymphocytes to generate gamma interferon. Infection with other Mycobacteria, including M. kansasii, M. szulgai, and M. marinum, may cause false positive results. A negative QuantiFERON-TB Gold Plus result does not preclude the possibility of M. tuberculosis infection or tuberculosis disease: false negative results can be due to incorrect blood sample collection/ improper handling of the specimen, stage of infection (e.g., specimen obtained prior to the development of cellular immune response), co-morbid conditions which affect immune function, or other individual immunological factors. The minimum number of lymphocytes required for a reliable test has not been established and may also be variable. Diagnostic testing for Mycobacterium tuberculosis using Interferon Gamma Release Assays should follow applicable published guidelines, including when testing in populations such as children, women, and HIV-infected or otherwise immunocompromised individuals. https://www.cdc.gov/tb/publications/guidelines/testing.htm us Michel Giles [facility] IMMUNOLOGY ORDERABLES Final Result [facility] [address] [place] [address], documented in this encounter Visit Diagnoses Diagnosis Encounter for pre-employment examination Health examination of defined subpopulation documented in this encounter Care Teams Risk Control Analyst Relationship Specialty Start Date End Date Ashleigh Rodrigues MD [address] [address] [place] [address] [place] [id number] PCP - General Family Medicine 11/14/22 Randee Campoverde III, MD [address] [place] [address] Consulting Physician Urology 11/14/22 documented as of this encounter
--- OUTSIDE RECORDS SUMMARY | 2025-02-18 10:38 | XMS_ITS | Encounter Summary ---
Author Organization [facility] Address [facility] [place] [address] Care Team Providers Care Set Up Technician Name Role Phone Angie Boyd NP Primary Care Provider [phone] Encounter Details Date Type Department Care Team (Late st Contact Info) Description 03/03/2020 [employer] Message Enc [facility] Diabetes and Endocrinology - [place] [address] [place] [address] Fanny Cabral MD [address] [place], [place] [id number] Metformin Social History Tobacco Use Types Packs/Day Years Used Date Smoking Tobacco: Every Day Electronic Cigarettes Smokeless Tobacco: Never Alcohol Use Standard Drinks/Week Comments Yes 0 (1 standard drink = 0.6 oz pur e alcohol) AUDIT-C Answer Date Recorded Frequency of Alcohol Consumption 2-4 times a mon 10/04/2019 Average Number of Drinks Not on file 020 Frequency of Binge Drinking Not on file 09/06 Comments Unknown Sex and Gender Information Value Date Recorded Sex Assigned at Not on file Legal Sex Female 2:36 PM CDT Gender Identity Not on file Sexual Orientation Not on file COVID-19 Exposure Response Date Recorded In the last month, have you been in contact with someone who was confirmed or suspected to have Coronavirus / COVID-19? No / Unsure 02/10/2020 10:32 AM CDT documented as of this encounter Plan of Treatment Not on file documented as of this encounter Visit Diagnoses Not on filedocumented in this encounter Care Teams Set Up Technician Relationship Specialty Start Date End Date Angie Boyd NP [address] [place] [phone] PCP - General NURSE PRACTITIONER 09/23/19 documented as of this encounter
--- OUTSIDE RECORDS SUMMARY | 2025-02-18 10:38 | XMS_ITS | Encounter Summary ---
Author Organization [facility] Address [facility] [place] [address] Care Team Providers Care Skin Diver Name Role Phone Angie Boyd RESERVATIONS SPECIALIST Primary Care Provider [phone] Encounter Details Date Type Department Care Team (Latest Contact Info) Description 03/02/2020 [employer] Message Enc [facility] Diabetes and Endocrinology - [place] [id number] [place] [address] Fanny Cabral MD [address] [place], [place] [phone] RE: Medication Questions Social History Tobacco Use Types Packs/Day Years Used Date Smoking Tobacco: Every Day Electronic Cigarettes Smokeless Tobacco: Never Alcohol Use Standard Drinks/Week Comments Yes 0 (1 standard drink = 0.6 oz pur e alcohol) AUDIT-C Answer Date Recorded Frequency of Alcohol Consumption 2-4 times a mon th 10/04/2019 Average Number of Drinks Not on [...] on filedocumented in this encounter Care Teams Skin Diver Relationship Specialty Start Date End Date Angie Boyd NP [address] [place] [phone] PCP - General NURSE PRACTITIONER 09/23/19 documented as of this encounter
--- OUTSIDE RECORDS SUMMARY | 2025-02-18 10:39 | XMS_ITS | Clinical Summary ---
Author Organization [facility] Address [address] [place] [address] Care Team Providers Care Dispatcher Chief Oil Name Role Phone Angie León NP Primary Care Provider [phone] Allergies Active Allergy Reactions Criticality Noted Date Comments Latex Unknown 2020 Oxycodone Unknown 02/22/2021 Penicillins Unknown 05/13/2020 Oxycodone-Acetaminophen Unknown 2020 Sitagliptin Unknown 02/22/2021 Medications ASPIRIN LOW DOSE 81 MG tablet Take 81 mg by mouth daily. 0 Active lisinopril 2.5 MG tablet Take 2.5 mg by mouth daily. 0 Active lovastatin 40 MG tablet TAKE 1 TABLET WITH THE EVENING MEAL ONCE A DAY ORALLY 60 DAYS 0 Active oxybutynin XL 10 MG 24 hr tablet Take 10 mg by mouth daily. 0 Active Insulin Pen Needle (BD PEN NEEDLE MICRO U/F) 32G X 6 MM MiscIndications :Polyneuropathy due to type 2 diabetes mellitus ([facility]) TO INJECT INSULIN 4 TIMES DAILY 150 each 3 0 Active OLANZapine 2.5 MG tablet Take 2.5 mg by mouth nightly at bedtime. 0 Active sertraline 50 MG tablet Take 50 mg by mouth every morning. 0 Active prochlorperazin e 10 MG tablet Take 10 mg by mouth 4 (four) times daily as needed. 0 Active metFORMIN ER 500 MG 24 hr tablet Take 1 tablet (500 mg total) by mouth 2 (two) times daily with meals. 30 tablet 1 Active famotidine 20 MG tablet Take 20 mg by mouth 2 (two) times daily. Takes 1-2 times daily as needed Active ferrous sulfate, 65 mg elemental, 325 (65 FE) MG tabletIndicatio ns:Low hemoglobin Take 1 tablet (325 mg total) by mouth 3 (three) times daily with meals. 30 tablet 1 Active ipratropium 0.03 % nasal spray USE 2 SPRAYS IN EACH NOSTRIL THREE TIMES DAILY NEEDED FOR RUNNY NOSE OR CONGESTION 1 Active DULoxetine 30 MG capsule 1 Active aflibercept 2 MG/0.05ML ophthalmic injection 2 mg by Intravitreal route once. 1 monthly injection in Left eye. Active norethindrone 5 MG tablet Take 5 mg by mouth daily. 1 Active insulin regular, CONCENTRATED, (HUMULIN R U-500 KWIKPEN) 500 UNIT/ML injectionIndica tions:Type 2 diabetes mellitus with diabetic neuropathy, with long-term current use of insulin ([facility]) INJECT 110 UNITS UNDER THE SKIN IN THE MORNING AND 100 UNITS IN THE EVENING, 30 MIN BEFORE FOOD 12 mL 3 2 Active Active Problems No known active problems Immunizations Immunization Administration Dates Next Due PFIZER COVID-19 (ORIGINAL FO RMULATION, PURPLE CAP) mRNA, LNP-S, PF, 30 MCG/0.3 ML DOSE 09/06/2020,08/18/2020 Tdap (Boostrix) 10/10/2020 Family History Medical History Relation Comments Diabetes Maternal Grandfather Heart Disease Maternal Grandfather Diabetes Maternal Grandmother Heart Disease Maternal Grandmother Cancer Mother Relation Status Comments Maternal Grandfather Maternal Grandmother Mother Social History Tobacco Use Types Packs/Day Years Used Date Smoking Tobacco: Every Day Electronic Cigarettes Smokeless Tobacco: Never Tobacco Cessation:Ready to Q uit: No; Counseling Given: Yes Comments:provider will cemetery counselor Alcohol Use Standard Drinks/Week Comments Yes 0 (1 standard drink = 0.6 oz pur e alcohol) occasionally AUDIT-C Answer Date Recorded Frequency of Alcohol Consumption 2-4 times a mon10/04/2019 Average Number of Drinks Not on file 020 Frequency of Binge Drinking Not on file 09/06 PHQ-2 Answer Date Recorded PHQ-2 Score - If the patient scores above 3, please move on to questions 3-9 0 11/17/2020 Comments Unknown Sex and Gender Information Value Date Recorded Sex Assigned at Not on file Legal Sex Female 2:36 PM CDT Gender Identity Not on file Sexual Orientation Not on file Last Filed Vital Signs Vital Sign Reading Time Taken Comments Blood Pressure 124/72 04/09/2021 1:06 PM CLERICAL ADJUDICATOR Pulse 88 04/09/2021 1:06 PM CLERICAL ADJUDICATOR Temperature 36.3 C (97.3 F) 11/17/2020 10:19 AM CDT Respiratory Rate 18 10/10/2020 4:27 PM CDT Oxygen Saturation 98% 12/18/2020 8:41 AM CDT Inhaled Oxygen Concentration - - Weight 132.9 kg (293 lb) 04/09/2021 1:06 PM CLERICAL ADJUDICATOR Height 162.6 cm (5' 4) 04/09/2021 1:06 PM CLERICAL ADJUDICATOR Body Mass Index 50.29 04/09/2021 1:06 PM CLERICAL ADJUDICATOR Plan of Treatment Health Maintenance Due Date Last Done Comments Colorectal Cancer Screening Colonoscopy (10 Years) 1977 Annual Physical 1980 Hepatitis C 08/12/1995 Hepatitis B Vaccines (1 of 3 - 19+ 3-dose series) 1996 Pneumococcal Vaccine: Pediatrics (0 to 5 Years) and At-Risk Patients (6 to 49 Years) (1 of 2 - PCV) 1996 Mammogram Screening 2017 Cervical Cancer Screening Pa p Smear (Age 30 to 64) Every 3 Years 11/24/2023 11/23/2020, 10/26/2020 COVID-19 Vaccine ( - 2024-2 6 season) 2025 09/06/2020, 08/18/2020 Influenza Adult (#1) 2025 Cervical Cancer Screening Pa p with HPV Testing (Age 30 to 64) Every 5 Years 11/23/2025 11/23/2020, 10/26/2020 Cervical Cancer Screening wi th HPV 11/23/2025 DTaP, Tdap and Td Vaccines ( 2 - Td or Tdap) 10/10/2030 10/10/2020 Hepatitis A Vaccines Aged Out No long er eligible based on patient's age to complete this topic Meningococcal B Vaccine Aged Out No l onger eligible based on patient's age to complete this topic Meningococcal Vaccine Aged Out No denisse pasquale eligible based on patient's age to complete this topic RSV Immunizations Under 20 Months Aged Out No longer eligible b ased on patient's age to complete this topic Procedures Procedure Name Priority Date/Time Associated Diagnosis Comments HUMAN PAPILLOMAVIRUS, HIGH-RISK TYPES Routine 11/23/2020 12:00 PM CDT CYTOPATH CERV/VAG THIN LAYER Routine 11/23/2020 6:49 AM CDT from Last 3 Months or Most Recently Relevant to Health Maintenance Results * HUMAN PAPILLOMAVIRUS, HIGH-RISK TYPES (11/23/2020 12:00 PM CDT) SPECIMEN CERVICAL/END OCERVICAL 11/25/2020 7:44 AM CDT [facility] HPV DNA HIGH RISK NEGATIVE NEGATIVE 11/27/2020 2:33 PM CDT [facility] Comment:SEE CYTOLOGY REPORT 11/23/2020 12:0 0 PM CDT [facility] Lesa Hodgson MD PATHOLOGY/CYTOLOGY ORDERAB LES Final Result [facility] [address] [place] [address], * Cytopath Cerv/Vag Thin Layer (11/23/2020 6:49 AM CDT) THIN PREP PAP [facility] [address] [place] [address] Department of Pathology Pathology Report CERVICAL/VAGINAL PAP SMEAR REPORT Name: HEIDY HESTER Age: 4 1975 (Age: 45) Location: [facility] Sex: F Collected Date: 11/23/2020 [facility] #: [id number] Date Received: 11/25/2020 Date Reported: 12/03/2020 Provider: JUAREZ LEÓN HAND ALTERATIONS TAILOR INTERPRETATION CERVICAL/ENDOCERVI CLAUDIA: SATISFACTORY FOR EVALUATION. ENDOCERVICAL/TRANS FORMATION ZONE COMPONENT ABSENT. NEGATIVE FOR INTRAEPITHELIAL LESION OR MALIGNANCY. NEGATIVE FOR HIGH RISK HPV. The FDA approved Aptima HPV assay is an in vitro nucleic acid amplification test for the qualitative detection of E6/E7 viral messenger RNA (mRNA) from 14 high-risk types of human papillomavirus (HPV) in cervical specimens. The high-risk HPV types detected by the assay include: 16,18,31,33,35,39, 45,51,52,56,58,59, 66, and 68. Electronically Signed Out [facility] J[facility] Ornelas (ASCP) CLINICAL HISTORY ABNORMAL/POSTMENOP AUSAL BLEEDING PAP AND SCIENTIFIC ARTIST SURGICAL HISTORY-UNKNOWN Z12.4 ThinPrep Pap Test with screening HR HPV testing requested, with reflex HPV 16/18 genotyping on negative cytology, positive HR HPV Date of Last Menstrual Period: UNKNOWN SPECIMEN SUBMITTED CERVICAL/ENDOCERVI CLAUDIA Specimen Received:1 Thin Prep Vial, Image Assisted Pap (SMD) Please note: The Pap smear is not a diagnostic test. It is a screening test. Negative results on combined screening (Pap test and HPV-DNA) have a high negative predictive value (99.1-100 percent) for cervical cancer. The pap test is not effective in detecting cervical adenocarcinoma. [facility] 11/23/2020 6:49 AM CDT 11/25/2020 6:49 AM CDT Comment:CERVICAL/ENDOCERVICA L us Juarez Hodgson MD PATHOLOGY/CYTOLOGY ORDERAB LES Final Result [facility] [address] [place] [address], from Last 3 Months or Most Recently Relevant to Health Maintenance Insurance [employer] on file [facility] Care Teams Dispatcher Chief Oil Relationship Specialty Start Date End Date Angie León NP [address] [place] [phone] PCP - General NURSE PRACTITIONER 09/23/19
--- NOTE | 2025-02-18 11:16 | ED_ITS ---
HPI - Wound/Laceration General Chief Complaint: Wound/Laceration Stated Complaint: left thumb lac Time Seen by Provider: 02/18/25 11:00 Source: patient and RN notes reviewed Mode of arrival: ambulatory Limitations: no limitations History of Present Illness HPI narrative: 49-year-old female presents Express Care complaining of left thumb injury yesterday. Patient said last night approximately 12 hours ago she accidentally closed her left thumb in her car door. Patient reports a laceration to her left thumb along with pain in her thumb. Patient says she takes Plavix for history of heart failure and had a hard time controlling bleeding last night. Patient says the bleeding has finally stopped today however she reports still having pain to her thumb. Patient's tetanus is not up-to-date. Patient denies any redness, swelling, fevers, eczema chills, numbness, tingling, any other injuries. Related Data Home Medications ?Medication ?Instructions ?Recorded ?Confirmed ?Last Taken ?Type armodafinil 200 mg tablet 200 mg PO DAILY 04/06/24 Unknown History aspirin 81 mg tablet,delayed 81 mg PO DAILY 04/06/24 1 Unknown History release atorvastatin 80 mg tablet 80 mg PO DAILY 04/06/2402/05 Unknown History clopidogrel 75 mg tablet 75 mg PO DAILY 04/06/2402/05 Unknown History empagliflozin 25 mg tablet mg 04/06/24 Unknown Histor y (Jardiance) furosemide 20 mg tablet 20 mg PO BID 04/06/24 Unknown History gabapentin 800 mg tablet 800 mg PO TID 04/06/2402/18 Unknown History isosorbide mononitrate 30 mg mg PO 04/06/24 Unknown H istory tablet,extended release 24 hr sertraline 100 mg tablet mg 04/06/24 Unknown History buspirone 5 mg tablet mg 02/18/25 Unknown History metoprolol succinate 50 mg mg PO 02/18/25 Unknown His tory tablet,extended release 24 hr pantoprazole 40 mg tablet,delayed mg PO 02/18/25 Unkn own History release tirzepatide 10 mg/0.5 mL mg subcut 02/18/25 Unknown History subcutaneous pen injector (Mounchristopherro) tizanidine 2 mg tablet mg 02/18/25 Unknown History Allergies Allergy/AdvReac Type Severity Reaction Status Date / Time Iodinated Contrast Media Allergy Unknown Verified 02/18/25 10:00 Latex, Natural Rubber Allergy Unknown Verified 02/18/25 10:00 nitrofurantoin (From Allergy Unknown Verified 02/18/25 10:00 Macrobid) Penicillins Allergy Unknown Verified 02/18/25 10:00 pregabalin (From Lyrica) Allergy Unknown Verified 02/18/25 10:00 Review of Systems Review of Systems: CONSTITUTIONAL: Denies fever, chills, or sweats. EYES: Denies visual changes, redness, or discharge. ENT: Denies rhinorrhea, congestion, sore throat, or otalgia. CARDIOVASCULAR: Denies chest pain, palpitations, or edema. RESPIRATORY: Denies cough or dyspnea. GASTROINTESTINAL: Denies abdominal pain, nausea, vomiting, or diarrhea. GENITOURINARY: Denies dysuria or hematuria. SKIN: Denies rash or itching. Positive for wound. MUSCULOSKELETAL: Denies back pain, joint pain, or myalgia. Positive for left thumb pain. NEUROLOGIC: Denies headache, numbness, or weakness. PSYCHIATRIC: Denies anxiety or depression. All other systems reviewed are negative, except as documented in HPI. [facility] Past Medical History Medical History Anxiety and depression Diabetes Congestive heart failure Hyperlipidemia Hypertension Surgical History Surgical History H/O: hysterectomy H/O heart artery stent Social History Social History Smoking status: Smoker, status unknown Alcohol intake: unknown Substance use: unknown Living arrangements: with family Gender identity (if verbalized by the patient): Female Comments At the time of my signature, I reviewed and agree with the nursing past medical, surgical, social, and family history. There is no relevant family history pertinent to the patient complaint. Exam Narrative: GENERAL: This is a well-nourished, well-developed adult, in no apparent distress. They are non ill-appearing, nontoxic appearing. HEAD: normocephalic, atraumatic. EYES: Sclera clear/white. Vision is grossly intact. EARS: External ears normal, Hearing grossly intact. NOSE: External nose normal THROAT: Mucous membranes moist, NECK: Neck supple, CARDIOVASCULAR: Regular rate and rhythm RESPIRATORY: New normal respiratory exam SKIN: warm, Dry, intact with no suspicious lesions or rash, good texture and turgor. NEURO: awake, alert, and oriented to person, place and time. There were no obvious focal neurologic abnormalities. EXTREMITIES: Left thumb: Laceration present to medial posterior thumb extending into the distal nail. Nail bed intact. No plate intact. It is measuring approximately 1 cm long. Tenderness to palpation to distal thumb. There is pain through full range of motion of thumb. Capillary refill less than 2 seconds. Normal sensation. Neurovascular status intact distal injury. Left radial pulse 2 +and palpable. No obvious bruising or swelling or deformity. BACK: Nontender without deformity. No CVA tenderness. Course Course Emergency Course: Portions of this record may have been created with voice recognition software Level of Care: Express Care Visit Vital Signs Vital signs: Vital Signs Temperature 97.7 F 02/18/25 09:58 Pulse Rate 77 02/18/25 09:58 Respiratory Rate 20 02/18/25 09:58 Blood Pressure 116/69 02/18/25 09:58 Pulse Oximetry 100 02/18/25 09:58 Oxygen Delivery Room Air 02/18/25 09:58 Temperature 97.7 F 02/18/25 09:58 Pulse Rate 77 02/18/25 09:58 Respiratory Rate 20 02/18/25 09:58 Blood Pressure 116/69 02/18/25 09:58 Pulse Oximetry 100 02/18/25 09:58 Oxygen Delivery Room Air 02/18/25 09:58 Reviewed Procedures Orthopedic Splinting/Casting Injury #1: Splinting/Casting Date: 02/18/25 Splinting/Casting Time: 11:20 Side: left Upper Extremity Injury Location: finger (Thumb) Splint: customized in ED Pre-Formed: metal foam finger splint Pre-Procedure Neuro Vascular Exam: normal Post-Procedure Neuro Vascular Exam: normal Additional Comments: Patient tolerated procedure well. MDM - Wound/Laceration MDM Narrative Medical decision making narrative: X-ray of left thumb reveals a nondisplaced distal phalanx fracture of the tip the distal phalanx. Fracture appears to be anterior. Patient does have a wound to the medial posterior thumb. Does not appear to be an open fracture. Based off fracture location. Will prophylactically send patient home on clindamycin, she has anaphylactic reaction to penicillin will avoid 1st generation cephalosporins due to this. Wound care performed by nursing staff, antibiotic ointment applied to wound and dressing placed. Middle finger splint placed over fracture. Patient's tetanus updated today. Will for patient hand specialist for further evaluation. Discussed physical exam findings. Advised supportive measures and signs/symptoms to go to the ER. Pt is appropriate for outpt treatment and f/u. Differential Diagnosis Differential diagnosis: Likely laceration, avulsion of skin and other (Fracture, sprain, contusion, open fracture) Imaging Data Radiologist's impression: ITS Impressions Finger X-Ray 02/18/25 10:48 Impression: Fracture detailed above Critical Care Time Critical Care Time Critical Care Time: No Discharge Plan Discharge Clinical Impression: Laceration Closed fracture of distal phalanx of thumb Qualifiers: Encounter type: initial encounter Fracture alignment: nondisplaced Laterality: left Qualified Code(s): S62.525A - Nondisplaced fracture of distal phalanx of left thumb, initial encounter for closed fracture Patient Disposition: Home Condition: Stable Instructions: Antibiotic Form, Thumb Fracture (ED) Additional Instructions: The x-ray of your left thumb reveals a fracture to the distal part of your thumb. Please wear the middle finger splint at all times. He may take it off to shower. Wash the wound daily with mild soap and water, do not soak or scrub the wound. Change the dressing at least daily or when visibly soiled. Apply antibiotic ointment to it with each dressing change. Take the antibiotics as directed. Follow-up with hand specialist in 3-5 days. If you developed worsening redness, swelling, pain, green/yellow drainage, fevers, body aches, chills, or any serious concerns please go to the ER immediately. Patient Language: Danish Prescriptions: New clindamycin HCl [Cleocin HCl] 150 mg capsule 450 mg PO TID 7 Days Qty: 63 0RF No Action buspirone 5 mg tablet tizanidine 2 mg tablet metoprolol succinate 50 mg tablet extended release 24 hr PO pantoprazole 40 mg tablet,delayed release (DR/EC) PO Mounjaro 10 mg/0.5 mL pen injector SUBCUT atorvastatin 80 mg tablet 80 mg PO DAILY clopidogrel 75 mg tablet 75 mg PO DAILY aspirin 81 mg tablet,delayed release (DR/EC) 81 mg PO DAILY gabapentin 800 mg tablet 800 mg PO TID armodafinil 200 mg tablet 200 mg PO DAILY isosorbide mononitrate 30 mg tablet extended release 24 hr PO sertraline 100 mg tablet furosemide 20 mg tablet 20 mg PO BID Jardiance 25 mg tablet Follow-up/Referrals: Baljinder Stroud MD [Physician, Plastic Surgery] Lilia,MD Ashleigh [Primary Care Provider, Unknown] Time of Disposition: 11:16
[2025-02-18] MEDS: TETANUS,DIPHTHERIA,AC PERTUSSIS ADULT (0.5 ML) BOOSTRIX IM (11:24)
== END 2025-02-18 11:46 | disposition home or self-care (01) ==
PROVIDERS: PCP Family Medicine
DX: S61.112A Laceration without foreign body of left thumb with damage to nail, initial encounter (principal); S62.525A Nondisplaced fracture of distal phalanx of left thumb, initial encounter for closed fracture; W23.2XXA Caught, crushed, jammed or pinched between a moving and stationary object, initial encounter; Z23 Encounter for immunization; E11.9 Type 2 diabetes mellitus without complications; Z79.84 Long term (current) use of oral hypoglycemic drugs; Z79.85 Long-term (current) use of injectable non-insulin antidiabetic drugs; I11.0 Hypertensive heart disease with heart failure; I50.9 Heart failure, unspecified; E78.5 Hyperlipidemia, unspecified; F41.9 Anxiety disorder, unspecified; F32.A Depression, unspecified; Z95.5 Presence of coronary angioplasty implant and graft; Z79.82 Long term (current) use of aspirin
CPT/HCPCS: 29130; 73140; 90471; 90715; 99214; G0463